=== PATIENT | female | born 1965 | race Two or more races ===

== ENCOUNTER 2016-03-25 12:14 | Emergency (ER) | payer MEDICAID ==
[~2016-03-25] VITALS: Ht 167.6 cm; Wt 86.2 kg
[~2016-03-25 12:14] MED LIST: GLIP-116; GLYB5TAB66; METF-316; ONGLYZA 5 MG; onglyza
[2016-03-25 13:32] VITALS: BP 133/78
== END 2016-03-25 16:16 | disposition home or self-care (01) ==
LOC: ER 12:14
DX: S20.211A Contusion of right front wall of thorax, initial encounter (principal); E11.9 Type 2 diabetes mellitus without complications; I10 Essential (primary) hypertension; W01.0XXA Fall on same level from slipping, tripping and stumbling without subsequent striking against object, initial encounter; Y93.89 Activity, other specified; Y99.8 Other external cause status; Y92.89 Other specified places as the place of occurrence of the external cause
CPT/HCPCS: 71101

== ENCOUNTER 2016-05-17 14:12 | Emergency (ER) | payer MEDICAID ==
[~2016-05-17] VITALS: Ht 167.6 cm; Wt 83.5 kg
[2016-05-17 15:45] LABS: Basophils # (auto) 0.1 uL; Basophils % (auto) 0.9 % (0.0-2.0); Eosinophils # (auto) 0 uL; Eosinophils % (auto) 0.2 % (0.0-7.0); Hematocrit 41.5 % (36.0-46.0); Hemoglobin 13.7 g/dL (12.2-16.2); Lymphocytes # (auto) 1.9 uL; Lymphocytes % (auto) 32.2 % (10.0-50.0); Mean Corpuscular Hemoglobin 28.9 pg (28.0-32.0); Mean Corpuscular Volume 87.7 fL (80.0-100.0); Mean Platelet Volume 8.3 fL (7.4-10.4); Monocytes # (auto) 0.6 uL; Monocytes % (auto) 9.8 % (0.0-12.0); Neutrophils # (auto) 3.4 uL; Neutrophils % (auto) 56.9 % (37.0-80.0); Platelet Count (auto) 317 10^3/uL (140-450); Red Cell Distribution Width 13.3 % (11.6-16.0); White Blood Cell 5.9 10^3/uL (4.4-10.8)
[2016-05-17 15:46] LABS: Albumin 3.5 g/dL (3.4-5.0); Anion Gap 10 (5-15); Aspartate Aminotransferase 16 U/L (15-37); BUN/Creatinine Ratio 18.3; Blood Urea Nitrogen 11 mg/dL (7-18); Calcium 8.6 mg/dL (8.5-10.1); Carbon Dioxide 25 mmol/L (21-32); Chloride 102 mmol/L (98-107); GFR African American 136 mL/min; GFR Non-African American 112 mL/min; Glucose 275 mg/dL (74-106); Potassium 3.9 mmol/L (3.5-5.1); Sodium 137 mmol/L (136-145)
[2016-05-17 15:50] LABS: Alkaline Phosphatase 123 U/L (45-117); Bilirubin, Total 0.3 mg/dL (0.2-1.0); Total Protein 7.7 g/dL (6.4-8.2)
[2016-05-17 20:15] VITALS: BP 125/74
[2016-05-17] MEDS ORDERED: KETOROLAC TROMETH 30 MG/ML 1ML VIAL IV ONE (20:45)
== END 2016-05-17 21:08 | disposition home or self-care (01) ==
LOC: ER 14:12
DX: R07.89 Other chest pain (principal); J40 Bronchitis, not specified as acute or chronic; E11.9 Type 2 diabetes mellitus without complications; I10 Essential (primary) hypertension; M54.2 Cervicalgia; Z79.84 Long term (current) use of oral hypoglycemic drugs; Z79.899 Other long term (current) drug therapy
CPT/HCPCS: 36415; 71010; 80053; 84484; 85025; 93005; 96374; 99285; J1885

== ENCOUNTER 2016-08-12 16:03 | Emergency (ER) | payer MEDICAID ==
[~2016-08-12] VITALS: Ht 167.6 cm; Wt 84.4 kg
[~2016-08-12 16:03] MED LIST changes: -METF-316; +METF-372
[2016-08-12 16:08] VITALS: BP 128/68
[2016-08-12] MEDS ORDERED: KETOROLAC TROMETH 60MG/2ML VIAL IM ONE (16:45)
== END 2016-08-12 18:01 | disposition home or self-care (01) ==
LOC: ER 16:05
DX: M13.0 Polyarthritis, unspecified (principal); I10 Essential (primary) hypertension; E11.9 Type 2 diabetes mellitus without complications; Z79.4 Long term (current) use of insulin
CPT/HCPCS: 73030; 73080; 96372; 99284; J1885; J7040

== ENCOUNTER 2017-03-26 11:17 | Emergency (ER) | payer MEDICAID ==
[~2017-03-26] VITALS: Ht 167.6 cm; Wt 86.2 kg
[2017-03-26 16:33] LABS: Urine Bacteria MANY /hpf (None Seen); Urine Blood 2+ /uL (Negative); Urine Mucus FEW (None Seen); Urine Specific Gravity 1.017 (1.001-1.035); Urine WBC 1416 /hpf (0 - 5); Urine WBC Clumps PRESENT /hpf (None Seen)
[2017-03-26 16:50] VITALS: BP 126/73
[2017-03-26] MEDS ORDERED: cefTRIAXone W LIDOCAINE 1 GM IM IM ONE (17:15)
[2017-03-26] MEDS ORDERED: cefTRIAXone SOD 1,000 MG VL ONE (17:29)
[2017-03-26] MEDS ORDERED: LIDOCAINE 1% HCL (LOCAL ANESTH.) INJ 20ML MDV ONE (17:29)
[2017-03-26] MEDS ORDERED: LIDOCAINE 1% HCL (LOCAL ANESTH.) INJ 20ML MDV IJ ONE (17:45)
[2017-03-26] MEDS ORDERED: cefTRIAXone SOD 1,000 MG VL IM ONE (17:45)
== END 2017-03-26 18:04 | disposition home or self-care (01) ==
LOC: ER 11:17
DX: N30.00 Acute cystitis without hematuria (principal); E11.9 Type 2 diabetes mellitus without complications; I10 Essential (primary) hypertension; Z79.84 Long term (current) use of oral hypoglycemic drugs
CPT/HCPCS: 81001; 82962; 87086; 87088; 87186; 96372; 99284; J0696; J2001

== ENCOUNTER 2017-04-20 18:05 | Emergency (ER) | payer MEDICAID ==
[~2017-04-20] VITALS: Ht 167.6 cm; Wt 87.5 kg
[2017-04-20 19:05] LABS: Basophils # (auto) 0.1 uL; Basophils % (auto) 0.8 % (0.0-2.0); Eosinophils # (auto) 0.2 uL; Eosinophils % (auto) 2.4 % (0.0-7.0); Hematocrit 39.6 % (36.0-46.0); Lymphocytes # (auto) 4.1 uL; Lymphocytes % (auto) 43.3 % (10.0-50.0); Mean Corpuscular Hemoglobin 29.4 pg (28.0-32.0); Mean Corpuscular Hgb Conc. 32.8 g/dL (32.0-36.0); Mean Corpuscular Volume 89.8 fL (80.0-100.0); Monocytes # (auto) 0.6 uL; Monocytes % (auto) 6.5 % (0.0-12.0); Neutrophils # (auto) 4.5 uL; Nucleated Red Blood Cells % 0.2 %; Platelet Count (auto) 302 10^3/uL (140-450); Red Blood Cells 4.41 10^6/uL (4.0-5.20); Red Cell Distribution Width 13.2 % (11.8-14.3); White Blood Cell 9.5 10^3/uL (4.4-10.8)
[2017-04-20 19:26] LABS: Alanine Aminotransferase 22 U/L (13-56); Albumin 3.3 g/dL (3.4-5.0); Alkaline Phosphatase 109 U/L (45-117); Anion Gap 9 (5-15); Aspartate Aminotransferase 17 U/L (15-37); BUN/Creatinine Ratio 31.4; Bilirubin, Total 0.2 mg/dL (0.2-1.0); Blood Urea Nitrogen 22 mg/dL (7-18); Calcium 8.6 mg/dL (8.5-10.1); Carbon Dioxide 25 mmol/L (21-32); Chloride 106 mmol/L (98-107); GFR African American 113 mL/min; GFR Non-African American 94 mL/min; Glucose 199 mg/dL (74-106); Magnesium 2.1 mg/dL (1.6-2.6); Potassium 3.6 mmol/L (3.5-5.1); Sodium 140 mmol/L (136-145); Total Protein 7.5 g/dL (6.4-8.2)
[2017-04-20 21:30] VITALS: BP 138/72
== END 2017-04-20 22:51 | disposition home or self-care (01) ==
LOC: ER 18:05
DX: R07.9 Chest pain, unspecified (principal); R06.02 Shortness of breath; E11.9 Type 2 diabetes mellitus without complications; K21.9 Gastro-esophageal reflux disease without esophagitis; I10 Essential (primary) hypertension; Z79.899 Other long term (current) drug therapy; E66.01 Morbid (severe) obesity due to excess calories; Z68.31 Body mass index [BMI] 31.0-31.9, adult; Z79.84 Long term (current) use of oral hypoglycemic drugs
CPT/HCPCS: 36415; 71046; 80053; 83735; 84484; 85025; 93005

== ENCOUNTER 2017-10-25 20:14 | Emergency (ER) | payer MEDICARE, MEDICAID ==
[~2017-10-25] VITALS: Ht 167.6 cm; Wt 85.7 kg
[2017-10-25 21:25] LABS: Basophils # (auto) 0.1 uL; Basophils % (auto) 0.8 % (0.0-2.0); Eosinophils # (auto) 0.1 uL; Eosinophils % (auto) 1.6 % (0.0-7.0); Hematocrit 38.5 % (36.0-46.0); Hemoglobin 12.9 g/dL (12.2-16.2); Lymphocytes # (auto) 2.7 uL; Lymphocytes % (auto) 34.6 % (10.0-50.0); Mean Corpuscular Hemoglobin 29.8 pg (28.0-32.0); Mean Corpuscular Hgb Conc. 33.4 g/dL (32.0-36.0); Mean Corpuscular Volume 89.2 fL (80.0-100.0); Monocytes # (auto) 0.5 uL; Neutrophils # (auto) 4.5 uL; Nucleated Red Blood Cells % 0.1 %; Platelet Count (auto) 304 10^3/uL (140-450); Red Blood Cells 4.32 10^6/uL (4.0-5.20); White Blood Cell 7.9 10^3/uL (4.4-10.8)
[2017-10-25 21:41] LABS: Urine Bacteria FEW /hpf (None Seen); Urine Blood Negative /uL (Negative); Urine Mucus FEW (None Seen); Urine Specific Gravity 1.011 (1.001-1.035); Urine WBC 21 /hpf (0 - 5)
[2017-10-25 21:51] LABS: Alanine Aminotransferase 23 U/L (13-56); Albumin 3.4 g/dL (3.4-5.0); Alkaline Phosphatase 120 U/L (45-117); Anion Gap 6 (5-15); Aspartate Aminotransferase 16 U/L (15-37); BUN/Creatinine Ratio 19.4; Bilirubin, Total 0.3 mg/dL (0.2-1.0); Blood Urea Nitrogen 12 mg/dL (7-18); Calcium 8.5 mg/dL (8.5-10.1); Carbon Dioxide 29 mmol/L (21-32); Chloride 104 mmol/L (98-107); GFR African American 130 mL/min; GFR Non-African American 107 mL/min; Glucose 201 mg/dL (74-106); Lipase 83 U/L (73-393); Magnesium 2.2 mg/dL (1.6-2.6); Potassium 3.8 mmol/L (3.5-5.1); Sodium 139 mmol/L (136-145); Total Protein 7.6 g/dL (6.4-8.2)
[2017-10-26] MEDS ORDERED: SODIUM CHLORIDE 0.9% 1,000 ML IV ONE (02:00)
[2017-10-26] MEDS ORDERED: LEVOFLOXACIN 750MG 150 ML IV ONE (02:00)
[2017-10-26 03:45] VITALS: BP 134/75
== END 2017-10-26 04:31 | disposition home or self-care (01) ==
LOC: ER 20:14
DX: K29.00 Acute gastritis without bleeding (principal); E11.9 Type 2 diabetes mellitus without complications; I10 Essential (primary) hypertension; Z79.84 Long term (current) use of oral hypoglycemic drugs
CPT/HCPCS: 36415; 72131; 74176; 80053; 81001; 83690; 83735; 84484; 85025; 96365; 99285; J1956; J7030

== ENCOUNTER 2024-12-15 23:04 | Inpatient (IN) | payer MEDICAID, MEDICARE, OTHER ==
[~2024-12-15] VITALS: Ht 167.6 cm; Wt 76.7 kg
[~2024-12-15 23:04] MED LIST changes: -GLIP-116; +GLIP10TA9
[2024-12-16] VITALS (10 sets, daily range): BP systolic 151–162; BP diastolic 64–79; PULSE 104–113; RESP 15–26; TEMP 98.3–101.7; O2SAT 96–99
--- NOTE | 2024-12-16 00:05 | DVH ---
Exam: CT CT AB PEL WO CON-NO ORAL OR IV History: FLANK PAIN, KID STONE Comparison Study: None Technique: Multidetector spiral CT of the abdomen was performed from lung bases to pubic symphysis. I maging was performed without IV contrast. Axial, coronal and sagittal multiplanar reformats were obta ined from the axial data set by the technologist. Radiation Dose : 1. Abdomen/Pelvis: CTDIvol 12.69 mGy, DLP 740.05 mGy*cm. Findings: Evaluation of solid organs is limited due to lack of intravenous contrast use. Lung Bases: No acute or significant lung base finding. Normal heart size. No pleural or pericardial effusion. Liver: The liver is normal in size. No focal lesions. Gallbladder and Biliary Tree: Unremarkable Spleen: Unremarkable Pancreas: The pancreas is grossly normal in appearance. Adrenal Glands: Unremarkable Kidneys: Kidneys are grossly normal without calculi or hydronephrosis. Bladder: Large volume of gas within the wall of the urinary bladder. Gas is also seen in the lumen. Gas is seen tracking throughout the retroperitoneum including both psoas muscles as well as the epidu ral space of the spinal canal and posterior paraspinal soft tissues. Bowel: The stomach is grossly normal in appearance. Small bowel and colon are normal in caliber and d istribution. The appendix is not visualized; however, no secondary findings of acute appendicitis diana ntified. Ascites: Absent Lymphadenopathy: No mesenteric, retroperitoneal or periportal lymphadenopathy. Abdominal Wall and Mesentery: Unremarkable. Vasculature: The visualized abdominal aorta is normal in size and caliber. Evaluation of abdominal a nd pelvic vessels is limited due to lack of intravenous contrast. Pelvic Organs: Unremarkable Musculoskeletal: No aggressive focal bony lesions, acute fractures or dislocation. Gas is seen within the L4 and L5 vertebral bodies. IMPRESSION: Gas within the wall of the urinary bladder suggesting emphysematous cystitis. A large volume of gas is also seen tracking throughout the retroperitoneum including the psoas muscle s, vertebral bodies, and epidural space of the spinal canal. Cause unclear but presumably related to gas tracking along the venous return of the urinary bladder. Please correlate with any concern for a widespread infection. Radiation optimization: All CT scans at this facility use at least one of these dose optimization chang hniques: automated exposure control mA and/or kV adjustment per patient size (includes targeted exam s where dose is matched to clinical indication) or iterative reconstruction.
[2024-12-16 00:28] LABS: Nucleated Red Blood Cells % 0.0 %
[2024-12-16 00:30] LABS: Hematocrit 21.3 % (36.0-46.0); Mean Corpuscular Hemoglobin 27.6 pg (28.0-32.0); Mean Corpuscular Volume 87.7 fL (80.0-100.0)
[2024-12-16 00:32] LABS: Hemoglobin 6.7 g/dL (12.2-16.2)
--- NOTE | 2024-12-16 00:44 | DVH ---
CHEST RADIOGRAPH Indication: sepsis Technique: Single frontal view of the chest was obtained COMPARISON: None FINDINGS: Lungs and pleural spaces are clear. Cardiac silhouette and maria c are within normal limits. Bones and s oft tissues demonstrate no significant abnormality. IMPRESSION: No acute disease.
[2024-12-16 00:46] LABS: Alanine Aminotransferase 16 U/L (7-40); Anion Gap 13 (5-15); BUN/Creatinine Ratio 15.5 (10.0-20.0); Bilirubin, Total 0.4 mg/dL (0.2-1.0); Blood Urea Nitrogen 18 mg/dL (9-23); Calcium 8.9 mg/dL (8.7-10.4); Potassium 4.1 mmol/L (3.5-5.1); Total Protein 7.6 g/dL (5.7-8.2)
--- NOTE | 2024-12-16 00:46 | ED.PDOC ---
General HPI Comments HPI: Poor Historian. 59-year-old female presents to emergency depart for evaluation of right flank pain constant for the last eight days. Patient has been in makes him for at least a month to a proximally seven days ago she went to the hospital and was admitted for seven days with a placed a Bhandari catheter according to her. She does not know what her diagnosis was accept some kidney stones. She required blood transfusion there for anemia. although I am using a waiter/waitress buffet She is an extremely poor historian. She left the hospital in [place] today and came to our hospital. Past Medical History: DIABETES Past Surgical History: REVIEW OF SYSTEMS: CONSTITUTIONAL: Denies acute: fever, diaphoresis, chills, HEAD: Denies acute: headache, photophobia Eyes: Denies acute: Double vision, vision loss, eye pain, eye discharge. EARS: Denies acute: tinnitus, hearing loss, ear discharge, ear pain, THROAT: Denies acute: sore throat, swelling, difficulty swallowing , pain with swallowing, change in voice. NECK: Denies acute: neck pain, neck swelling, stiff neck. HEART: Denies acute : chest pain, palpitations, LUNGS: Denies acute: SOB, wheezing, cough, hemoptysis ABDOMEN: Denies acute: abdominal pain, Nausea, Vomiting, diarrhea, melena , hematemesis, hematochezia SKIN: Denies acute: rash, redness, lesions, itchiness. EXTREMITIES: Denies acute: calf pain, numbness, tingling, weakness, denies pain in extremity. Denies acute: Low back pain. Neuro: Denies acute: focal neurological deficit, motor or sensory focal neurological deficit, tremors, seizure like activity, confusion, dizziness, change in mental status, loss of bowel or bladder function, cauda equina like symptoms. : Denies acute: dysuria, hematuria, increase in urinary frequency. PSYCH: Denies acute: hallucination, suicidal ideation, homicidal ideation. FEMALE: Denies acute: abnormal vaginal bleeding, foul odor, unusual discharge. PHYSICAL EXAM: General: -----MILD---acute distress, awake and alert. Head: normocephalic, atraumatic. Neck: supple, trachea is midline, no swelling. Throat: Normal phonation. Eyes:, no erythema, no purulent discharge, no proptosis, no icterus. Heart: regular tachycardic, no significant murmur appreciated. Lungs: no apparent respiratory distress, Able to speak in full sentences. No wheezing, no rhonchi, no crackles. No stridors Clear to auscultation bilaterally. Abdomen: non tender to palpation, non distended, soft, no guarding, no rebound, + bowel sounds. Neuro: Awake, Alert, oriented to name, self, situation, follows commands GCS=15. Speech is normal. Skin: no petechia, no purpura, no cyanosis, SLIGHTLY-pale, SLIGHTLY jaundice. Lower extremities: --no - Pitting edema no deformity, no focal swelling, no calf TTP. Makes eye contact. moves all four extremities. Face: no apparent facial droop. Right CVA tenderness to percussion ED COURSE: DISCLAIMER: This medical document was created using an electronic medical record system with voice recognition software and computerized dictation system. Although this document has been carefully reviewed, there might still be some phonetic and typographical errors. Occasional wrong-word or "sound-alike" substitutions may have occurred due to the inherent limitations of voice recognition software. These areas are purely typographical due to imperfections of the software programs and do not reflect any compromise in the patient's medical care. Please read the chart carefully and recognize, using context, where these substitutions have occurred. Chief Complaint: Flank Pain Time Seen by MD: 23:20 Primary Care Provider: UNK Reviewed notes: Allergies Allergies: Coded Allergies: NO KNOWN ALLERGIES (Unverified , 08/21/09) Home Meds Active Scripts Hydrocodone-Acetaminophen (Hydrocodone Bitartrate/AC 5-325 mg) 1 Tab Tab, 1 TAB PO Q6HP PRN, #30 TAB Prov:CRAIG HENDRICKS MD 12/24/24 Reported Medications [Metformin [id number] Mg] (Metformin Hcl) 1000 MG TAB No Conflict Check, MG 07/11/12 [Onglyza 5 Mg Tablet] No Conflict Check 07/11/12 [[id number] Mg] (Glipizide) 10 MG TAB No Conflict Check, MG 07/11/12 [onglyza] 5 MG No Conflict Check, 5 MG DAILY 08/21/09 Metformin Hydrochloride (Metformin Hcl) 1,000 Mg Tab, 1000 MG BID 08/21/09 Glyburide (Diabeta) 5 Mg Tab, 5 MG 08/21/09 Information Source: Patient Mode of Arrival: Ambulatory Past Medical History PAST MEDICAL HISTORY: DM, HTN Surgical History: INTEGRATION SOFTWARE ENGINEER History: No Pertinent INTEGRATION SOFTWARE ENGINEER History Family History Family History: Unknown Social History Smoker: Non-Smoker Alcohol: Denies ETOH Use Drugs: Denies Drug Use Lives In: Home Was a procedure done? Was a procedure done?: No Differential Diagnosis Kidney stone (Female): Other (Flank Pain;DDX include Nephrolethiasis, obstructive uropathy, kidney cancer, renal infarct, intraabdominal neoplasm, lower lobe pneumonia, retroperitoneal hemorrhage, pancreatitis, aneurysm, di ssection, musculoskeletal, rib contusion/trauma, hematoma, PYLONEPHRITIS, muscle strain, spinal disease. ) X-Ray, Labs, Meds, VS Vital Signs Date Time Temp Pulse Resp B/P (MAP) Pulse Ox O2 Delivery O2 Flow Rate FiO2 12/16/24 01:20 110 21 99 Room Air* 0 21 12/15/24 23:10 98.3 123 20 144/50 97 98.3 Lab Test 12/16/24 01:50 12/16/24 01:40 12/16/24 00:05 Range/Units Urine Color Light-brown Yellow Urine Clarity Turbid H Clear Urine pH 5.5 5.0-9.0 Urine Specific [place] 1.018 1.001-1.035 Urine Protein 1+ H Negative Urine Ketones 1+ H Negative Urine Blood 3+ H Negative /uL Urine Nitrite Negative Negative Urine Bilirubin Negative Negative Urine Urobilinogen Normal Negative mg/dL Urine Leukocyte Esterase 2+ Negative /uL Urine RBC 1123 0 - 4 /hpf Urine WBC Clumps Present None Seen /hpf Urine Microscopic WBC 334 H 0-5 /HPF Urine Squamous Epithelial Cells Few <5 /hpf Urine Bacteria Many H None Seen /hpf Urine Glucose 4+ H Normal mg/dL POC Glucose 445 *H 70-106 mg/dl White Blood Count 17.2 H 4.4-10.8 10^3/uL Red Blood Count 2.43 L 4.0-5.20 10^6/uL Hemoglobin 6.7 *L 12.2-16.2 g/dL Hematocrit 21.3 L 36.0-46.0 % Mean Corpuscular Volume 87.7 80.0-100.0 fL Mean Corpuscular Hemoglobin 27.6 L 28.0-32.0 pg Mean Corpuscular Hemoglobin Concent 31.5 L 32.0-36.0 g/dL Red Cell Distribution Width 16.0 H 11.8-14.3 % Platelet Count 313 140-450 10^3/uL Mean Platelet Volume 6.6 L 6.9-10.8 fL Neutrophils (%) (Auto) 84.2 H 37.0-80.0 % Lymphocytes (%) (Auto) 8.7 L 10.0-50.0 % Monocytes (%) (Auto) 6.4 0.0-12.0 % Eosinophils (%) (Auto) 0.5 0.0-7.0 % Basophils (%) (Auto) 0.2 0.0-2.0 % Neutrophils # (Auto) 14.5 H 1.6-8.6 10 ^3/uL Lymphocytes # (Auto) 1.5 0.4-5.4 10 ^3/uL Monocytes # (Auto) 1.1 0-1.3 10 ^3/uL Eosinophils # (Auto) 0.1 0-0.8 10 ^3/uL Basophils # (Auto) 0 0-0.2 10 ^3/uL Nucleated Red Blood Cells 0.0 % Prothrombin Time 13.7 H 9.3-11.8 sec Prothrombin Time INR 1.33 H 0.9-1.15 Activated Partial Thromboplast Time 29.6 24.5-34.5 SEC Sodium Level 129 L 136-145 mmol/L Potassium Level 4.1 3.5-5.1 mmol/L Chloride Level 96 L 98-107 mmol/L Carbon Dioxide Level 20 20-31 mmol/L Anion Gap 13 5-15 Blood Urea Nitrogen 18 9-23 mg/dL Creatinine 1.16 H 0.550-1.02 mg/dL Glomerular Filtration Rate Calc 54 >90 mL/min BUN/Creatinine Ratio 15.5 10.0-20.0 Serum Glucose 508 *H 74-106 mg/dL Serum Osmolality 306 H 278-298 mOsm/kg Lactic Acid Level 0.9 0.4-2.0 mmol/L Calcium Level 8.9 8.7-10.4 mg/dL Iron Level 33 L 50-170 ug/dL Total Iron Binding Capacity 164 L 250-425 ug/dL Percent Iron Saturation 20.1 15-50 % Total Bilirubin 0.4 0.2-1.0 mg/dL Aspartate Amino Transferase (AST) 16 13-40 U/L Alanine Aminotransferase (ALT) 16 7-40 U/L Alkaline Phosphatase 126 H 46-116 U/L Total Protein 7.6 5.7-8.2 g/dL Albumin 3.1 L 3.2-4.8 g/dL Beta-Hydroxybutyric Acid 2.905 H < 0.4 mmol/L Microbiology Date/Time Source Procedure Growth Status 12/16/24 01:50 Voided Urine Urine Culture - Final Complete 12/16/24 00:52 Blood Blood Culture - Final Escherichia coli Complete 12/16/24 00:42 Blood Blood Culture - Final Escherichia coli Complete [place] [address] Ph: [phone] DIAGNOSTIC IMAGING Diagnostic Imaging Report : [id number] Signed PATIENT: MELO RODRÍGUEZ ACCT: [id number] UNIT: [id number] : 1965 LOC: ER ROOM / BED: / AGE / SEX: 59 / F ADM STATUS: REG ER SERVICE 2320 ORDERING PHYSICIAN: RM MORENO DO PROCEDURE(s): ABPL - CT AB PEL WO CON-NO ORAL OR IV REASON: FLANK PAIN, KID STONE ORDER NUMBER(s): [id number], ACCESSION NUMBER(s): [id number] Exam: CT CT AB PEL WO CON-NO ORAL OR IV History: FLANK PAIN, KID STONE Comparison Study: None Technique: Multidetector spiral CT of the abdomen was performed from lung bases to pubic symphysis. Imaging was performed without IV contrast. Axial, coronal and sagittal multiplanar reformats were obtained from the axial data set by the technologist. Radiation Dose : 1. Abdomen/Pelvis: CTDIvol 12.69 mGy, DLP 740.05 mGy*cm. Findings: Evaluation of solid organs is limited due to lack of intravenous contrast use. Lung Bases: No acute or significant lung base finding. Normal heart size. No pleural or pericardial effusion. Liver: The liver is normal in size. No focal lesions. Gallbladder and Biliary Tree: Unremarkable Spleen: Unremarkable Pancreas: The pancreas is grossly normal in appearance. Adrenal Glands: Unremarkable Kidneys: Kidneys are grossly normal without calculi or hydronephrosis. Bladder: Large volume of gas within the wall of the urinary bladder. Gas is also seen in the lumen. Gas is seen tracking throughout the retroperitoneum including both psoas muscles as well as the epidural space of the spinal canal and posterior paraspinal soft tissues. Bowel: The stomach is grossly normal in appearance. Small bowel and colon are normal in caliber and distribution. The appendix is not visualized; however, no secondary findings of acute appendicitis identified. Ascites: Absent Lymphadenopathy: No mesenteric, retroperitoneal or periportal lymphadenopathy. Abdominal Wall and Mesentery: Unremarkable. Vasculature: The visualized abdominal aorta is normal in size and caliber. Evaluation of abdominal and pelvic vessels is limited due to lack of intravenous contrast. Pelvic Organs: Unremarkable Musculoskeletal: No aggressive focal bony lesions, acute fractures or dislocation. Gas is seen within the L4 and L5 vertebral bodies. IMPRESSION: Gas within the wall of the urinary bladder suggesting emphysematous cystitis. A large volume of gas is also seen tracking throughout the retroperitoneum including the psoas muscles, vertebral bodies, and epidural space of the spinal canal. Cause unclear but presumably related to gas tracking along the venous return of the urinary bladder. Please correlate with any concern for a widespread infection. Radiation optimization: All CT scans at this facility use at least one of these dose optimization techniques: automated exposure control mA and/or kV adjustment per patient size (includes targeted exams where dose is matched to clinical indication) or iterative reconstruction. ATED BY: EVER JUAREZ MD DICTATED DATE/TIME: 12/16/24 0003 SIGNED BY: EVER JUAREZ MD SIGNED DATE/TIME: 12/16/24 0003 CC: Time of 1ST Reevaluation: 00:35 Reevaluation 1ST: Unchanged Patient Education/Counseling: Diagnosis, Treatment Family Education/Counseling: Other Comments MDM: patient presented with the above HPI.----flank pain--workup was initiated. patient was found with the above mentioned diagnosis. the following medications were ordered: please refer to order lists of meds and tests obtained by myself Dr. Moreno. Patient ED course and VS have been stabilized. Patient has been reassessed in the ED and remained in a stable condition. Pertinent incidental findings were discussed with the patient and/or family. Patient/family voices understanding and is agreeable with plan. Patient has been observed in the ED adequate length of time to insure improvement/stability. Escalation of care considered: Consideration of escalation to observation or admission Sepsis protocol was initiated. Patient was ADMITTED to the medicine team for further evaluation and treatment of their presentation. All the reports of any imaging studies that were ordered by myself were reviewed by myself. SEPSIS Sepsis Screen Date sepsis recognized/suspect: Dec 15, 2024 Time Sepsis recognized/suspect: 2314 Recent Procedure: No On Antibiotic Therapy: No Respiratory Rate >20: No Heart Rate >90: Yes Temp<36 C (96.8 F) or >38.3 C: No SBP <90 or MAP <65 mmHG: No New Acute Mental Status Change: No Is the patient on CPAP, BIPAP,: No Physician Orders System Programmer (12/15/24 ) Ct Ab Pel Wo Con-No Oral Or Iv (12/15/24 23:20) Chest Portable (12/16/24 00:22) Accucheck (12/16/24 00:22) Notify Md If Map <65 Or Bp<90 (12/16/24 00:22) If Map<65 Start Vasopressor (12/16/24 00:22) Sepsis Reassesment After Fluid (12/16/24 01:22) Kidney (12/16/24 02:39) Ct Ab Pel With Iv Con Only (12/16/24 02:39) Vital Signs Date Time Temp Pulse Resp B/P (MAP) Pulse Ox O2 Delivery O2 Flow Rate FiO2 12/16/24 01:20 110 21 99 Room Air* 0 21 12/15/24 23:10 98.3 123 20 144/50 97 98.3 Laboratory Tests Test 12/16/24 00:05 Lactic Acid Level 0.9 mmol/L (0.4-2.0) White Blood Count 17.2 10^3/uL (4.4-10.8) H Departure 1 Departure Time of Disposition: 00:28 Impression: Primary Impression: Sepsis Additional Impressions: Abnormal finding on CT scan Severe anemia Leukocytosis Hyperglycemia due to diabetes mellitus Disposition: ADMITTED INPATIENT Admit to: Tele Condition: Guarded e-Prescriptions Hydrocodone-Acetaminophen (Hydrocodone Bitartrate/AC 5-325 mg) 1 Tab Tab 1 TAB PO Q6HP PRN, #30 TAB Prov: CRAIG HENDRICKS MD 12/24/24 Discharged With: Self Critical Care Note Critical Care Time?: Yes (45 min-critical care time only) RM MORENO DO Dec 16, 2024 00:46
[2024-12-16 00:47] LABS: INR 1.33 (0.9-1.15); Partial Thromboplastin Time 29.6 SEC (24.5-34.5); Prothrombin Time 13.7 sec (9.3-11.8)
[2024-12-16 00:55] LABS: Albumin 3.1 g/dL (3.2-4.8); Alkaline Phosphatase 126 U/L (46-116); Carbon Dioxide 20 mmol/L (20-31); Chloride 96 mmol/L (98-107); Sodium 129 mmol/L (136-145)
[2024-12-16 00:56] LABS: Glucose 508 mg/dL (74-106)
--- NOTE | 2024-12-16 01:41 | DVHHPRES ---
History of Present Illness Resident Creating Document: NIKI KIRKPATRICK History of Present Illness The patient is a Mexican-speaking 59-year-old female presenting to the Emergency Department for evaluation of right flank pain that has been constant for the past 8 days. She is a poor historian, and a most history taken by her niece during the interview. She reports having been in [place] for at least one month. Approximately 7 days ago, she was admitted to a hospital in [place] for evaluation and treatment. During that hospitalization, a Bhandari catheter was placed, and she received a blood transfusion for anemia. The patient states she was diagnosed with kidney stones and pyelonephritis She was discharged from the hospital in [place] earlier today and came directly to our facility for further evaluation due to ongoing symptoms. On evaluation in the ED, patient is afebrile, vitals are stable. On current ED evaluation, she is afebrile with stable vital signs but blood pressure was 144/50 mmHg and significant normocytic anemia (Hgb 6.7) and marked hyperglycemia (glucose 508 mg/dL). Abdominal CT shows gas within the wall of the urinary bladder suggesting emphysematous cystitis. A large volume of gas is also seen tracking throughout the retroperitoneum including the psoas muscles, vertebral bodies, and epidural space of the spinal canal. The patient was started on IV antibiotics, Insulin and blood transfusion. Patient is admitted for further evaluation and lisandra jha. Cardiovascular: HTN Endocrine: Diabetes Past Surgical History: None Family History: None Smoke: No ALCOHOL: none Drugs: None Review of Systems Review of Systems Eyes: No Pain, No Vision change, No Conjunctivae inflammation, No Eyelid inflammation, No Other, No Redness ENT: No Ear pain, No Ear discharge, No Nose pain, No Nose discharge, No Nose congestion, No Mouth pain, No Mouth swelling, No Throat pain, No Throat swelling, No Other Cardiovascular: No Chest Pain, No Palpitations, No Orthopnea, No Paroxysmal No Dyspnea, No Edema, No Lt Headedness, No Other Respiratory: No Cough, No Dry, No Shortness of breath, No SOB with exertion, No Wheezing, No Hemoptysis, No Pleuritic Pain, No Sputum, No Other Gastrointestinal: No Nausea, No Vomiting, No Abdominal Pain, No Diarrhea, No Constipation, No Melena, No Hematochezia, No Other Genitourinary: No Dysuria, No Frequency, No Incontinence, No Hematuria, No Retention, No Other Musculoskeletal: No other, No neck pain, No shoulder pain, No arm pain, back pain, No hand pain, No leg pain, No foot pain Skin: No Rash, No Lesions, No Jaundice, No Bruising, No Other Allergies: Coded Allergies: NO KNOWN ALLERGIES (Unverified , 08/21/09) Exam Vital Signs Vital Signs Date Time Temp Pulse Resp B/P (MAP) Pulse Ox O2 Delivery O2 Flow Rate FiO2 12/15/24 23:10 98.3 123 20 144/50 97 98.3 Exam General Appearance: Mild acute distress. Cooperative. Well developed. Well nourished. NAD Head Exam: Normal inspection Neck Exam: Normal inspection. Non-tender. Normal alignment Pulmonary/Respiratory: Chest non-tender. Clear bilateral breath sounds, no crackles, no wheezing. Cardiovascular/Chest: Regular rate and rhythm. No murmurs. No JVD. Peripheral Pulses: 2+ Radial (R). 2+ Radial (L). 2+ Pedal (R). 2+ Pedal (L) Abdominal/Flank: Normal bowel sounds. Soft. normal abdomen, no visible veins, Nontender. No hepatospenomegaly. No masses. Right CVA tenderness to percussion Ankle Exam: Negative ankle edema Lower extremities: Negative lower extremity edema Neuro/Mental Status: A&O x4. Coherent. Thoughts/Psych: Normal thought pattern. Appropriate mood and affect. Good judgement and insight Skin Exam: Normal inspection. Normal color. Warm. Dry Labs/Xrays Labs Test 12/16/24 00:05 Range/Units White Blood Count 17.2 H 4.4-10.8 10^3/uL Red Blood Count 2.43 L 4.0-5.20 10^6/uL Hemoglobin 6.7 *L 12.2-16.2 g/dL Hematocrit 21.3 L 36.0-46.0 % Mean Corpuscular Volume 87.7 80.0-100.0 fL Mean Corpuscular Hemoglobin 27.6 L 28.0-32.0 pg Mean Corpuscular Hemoglobin Concent 31.5 L 32.0-36.0 g/dL Red Cell Distribution Width 16.0 H 11.8-14.3 % Platelet Count 313 140-450 10^3/uL Mean Platelet Volume 6.6 L 6.9-10.8 fL Neutrophils (%) (Auto) 84.2 H 37.0-80.0 % Lymphocytes (%) (Auto) 8.7 L 10.0-50.0 % Monocytes (%) (Auto) 6.4 0.0-12.0 % Eosinophils (%) (Auto) 0.5 0.0-7.0 % Basophils (%) (Auto) 0.2 0.0-2.0 % Neutrophils # (Auto) 14.5 H 1.6-8.6 10 ^3/uL Lymphocytes # (Auto) 1.5 0.4-5.4 10 ^3/uL Monocytes # (Auto) 1.1 0-1.3 10 ^3/uL Eosinophils # (Auto) 0.1 0-0.8 10 ^3/uL Basophils # (Auto) 0 0-0.2 10 ^3/uL Nucleated Red Blood Cells 0.0 % Prothrombin Time 13.7 H 9.3-11.8 sec Prothrombin Time INR 1.33 H 0.9-1.15 Activated Partial Thromboplast Time 29.6 24.5-34.5 SEC Sodium Level 129 L 136-145 mmol/L Potassium Level 4.1 3.5-5.1 mmol/L Chloride Level 96 L 98-107 mmol/L Carbon Dioxide Level 20 20-31 mmol/L Anion Gap 13 5-15 Blood Urea Nitrogen 18 9-23 mg/dL Creatinine 1.16 H 0.550-1.02 mg/dL Glomerular Filtration Rate Calc 54 >90 mL/min BUN/Creatinine Ratio 15.5 10.0-20.0 Serum Glucose 508 *H 74-106 mg/dL Lactic Acid Level 0.9 0.4-2.0 mmol/L Calcium Level 8.9 8.7-10.4 mg/dL Total Bilirubin 0.4 0.2-1.0 mg/dL Aspartate Amino Transferase (AST) 16 13-40 U/L Alanine Aminotransferase (ALT) 16 7-40 U/L Alkaline Phosphatase 126 H 46-116 U/L Total Protein 7.6 5.7-8.2 g/dL Albumin 3.1 L 3.2-4.8 g/dL SEPSIS Sepsis Screen Date sepsis recognized/suspect: Dec 15, 2024 Time Sepsis recognized/suspect: 2314 Recent Procedure: No On Antibiotic Therapy: No Respiratory Rate >20: No Heart Rate >90: Yes Temp<36 C (96.8 F) or >38.3 C: No SBP <90 or MAP <65 mmHG: No New Acute Mental Status Change: No Is the patient on CPAP, BIPAP,: No Physician Orders Marketing Instructor (12/15/24 ) Urinalysis (12/15/24 23:20) Ct Ab Pel Wo Con-No Oral Or Iv (12/15/24 23:20) Chest Portable (12/16/24 00:22) Accucheck (12/16/24 00:22) Blood Culture (12/16/24 00:22) Notify Md If Map <65 Or Bp<90 (12/16/24 00:22) If Map<65 Start Vasopressor (12/16/24 00:22) Sepsis Reassesment After Fluid (12/16/24 01:22) Vancomycin 1gm/250ml Kit (12/16/24 00:45) Type And Screen (12/16/24 00:33) Vital Signs Date Time Temp Pulse Resp B/P (MAP) Pulse Ox O2 Delivery O2 Flow Rate FiO2 12/15/24 23:10 98.3 123 20 144/50 97 98.3 Laboratory Tests Test 12/16/24 00:05 Lactic Acid Level 0.9 mmol/L (0.4-2.0) White Blood Count 17.2 10^3/uL (4.4-10.8) H Assessment/Plan Assessment/Plan Sepsis likely due to UTI Emphysematous cystitis kidney ultrasound pending CT abdomen pelvis pending blood culture and urine culture pending Abdomen/Pelvis CT: Gas within the wall of the urinary bladder suggesting emphysematous cystitis. A large volume of gas is also seen tracking throughout t he retroperitoneum including the psoas muscles, vertebral bodies, and epidural space of the spinal canal. Cause unclear but presumably related to gas tracking along the venous return of the urinary bladder. cefepime 1 Gm IV q.12 metronidazole IV Q 8 Zosyn IV Q 8 Severe normocytic, normochromic anemia Hgb: 6.7 Blood Transfusion Uncontrolled type 2 diabetes, hyperglycemia Hyperosmolar hyperglycemic state (HHS) Accu-Check serum glucose 508 Insulin lantus 20 unit SC once insulin are 5 units IV once moderate insulin Diet: Clear liquid PUD prophylaxis: protonix 40mg Goals of care: Full code, discussed for >16 minutes on 12/16/24 Plan discussed with patient Plan discussed with Dr. Moreno Plan discussed with: Patient, Other (Knees) Date of Service: Dec 16, 2024 Billing Provider: ADILSON MORENO MD [facility] RESIDENT Dec 16, 2024 01:41
[2024-12-16] MEDS: LACTATED RINGER'S 1,800 ML IV ONE (02:00)
[2024-12-16 02:21] LABS: Urine Protein, UAD 1+ (Negative); Urine WBC Clumps PRESENT /hpf (None Seen)
[2024-12-16] MEDS: InsuLIN REG 1unit/0.01ml Soln (100units/ml) IV ONE (02:28)
[2024-12-16] MEDS: PIPERACILLIN-TAZOB 3.375GM 100 ML IV ONE (02:35)
[2024-12-16] MEDS ORDERED: DEXTROSE (50%) 50ML SYRG IV PRN (02:45)
[2024-12-16 03:28] LABS: Iron 33.0 ug/dL (50-170); Total Iron Binding Capacity 164.0 ug/dL (250-425)
[2024-12-16] MEDS: VANCOMYCIN 1GM/250ML KIT 250 ML IV ONE (03:30)
[2024-12-16] MEDS: PANTOPRAZOLE 40 MG/10 ML VIAL INJ IV ONE (03:45)
[2024-12-16] MEDS ORDERED: VANCOMYCIN PER PHARMACY 0 MG IV SCH (04:15)
[2024-12-16] MEDS: ACCU-CHEK COMFORT CURVE STRIP VI SCH (04:23)
[2024-12-16] MEDS: InsuLIN REG 1unit/0.01ml Soln (100units/ml) SC SCH (04:37)
[2024-12-16] MEDS: LACTATED RINGER'S 1,000 ML IV ONE (05:50)
[2024-12-16] MEDS ORDERED: PIPERACILLIN-TAZOB 3.375GM 100 ML IV SCH (06:00)
[2024-12-16] MEDS: SODIUM CHLOR 0.9% PF (SALINE LOCK) 10ML VIAL/SYR IV SCH (06:13)
--- NOTE | 2024-12-16 07:14 | DVH ---
INDICATION: right flank pain TECHNIQUE: Multiple real-time sonographic images of the kidneys and bladder were obtained. COMPARISON: None FINDINGS: RIGHT kidney measures 12.9 cm in length. Trace hydronephrosis. LEFT kidney measures 15.0 cm in length. Trace hydronephrosis. No large intraluminal masses are seen in the bladder. Distended bladder measuring 873 cc. IMPRESSION: Distended urinary bladder with trace bilateral hydronephrosis.
[2024-12-16] MEDS: INSULIN LANTUS (GLARGINE) 1 /0.01ml (100units/ml) SC ONE (07:23)
[2024-12-16] MEDS: FERROUS SULFATE 325mg EC TAB PO SCH (08:19)
[2024-12-16] MEDS: CEFEPIME 1GM/50ML 50 ML IV SCH (08:19)
--- NOTE | 2024-12-16 08:20 | DVH ---
Exam: CT CT AB PEL WITH IV CON ONLY History: Right flank pain Comparison Study: None Contrast: Type of contrast: Omnipaque 300 Contrast injected: 100 mL Contrast wasted: 0 TECHNIQUE: CT of the abdomen pelvis was performed with intravenous contrast. Coronal sagittal reforma tted images are submitted. Radiation Dose Information: CT Dose: CTDI volume is 13.43 mGy. Dose-length product is 3.92 mGy*cm FINDINGS: Lung Bases: No acute or significant lung base finding. Normal heart size. No pleural or pericardial effusion. Liver: The liver is normal in size. No focal lesions. Normal hepatic vascular enhancement. Gallbladder and Biliary Tree: The gallbladder is unremarkable. Spleen: The spleen is normal in size. No splenic mass. Pancreas: The pancreas is normal in appearance without focal lesions or abnormal enhancement. Adrenal Glands: Unremarkable Kidneys: There is diminished enhancement of the right kidney as compared to the left and there is per inephric fat stranding. There is mild right hydronephrosis without an obstructing stone. Left kidney is unremarkable. Bladder: Interval placement of a Bhandari catheter with its tip terminating in the urinary bladder which is now underdistended compared to the prior study. There is diffuse emphysema within the wall of the urinary bladder reflecting emphysematous cystitis. Bowel: The stomach is grossly normal in appearance. Small bowel and colon are normal in caliber and d istribution. The appendix is visualized and is normal in caliber. Peritoneum: No large volume pneumoperitoneum to suggest visceral perforation. No ascites. Retroperitoneum: There is emphysema in the retroperitoneum including the bilateral psoas muscles and posterior to the abdominal aorta as well as in the thecal sac /epidural space and in the paraspinal m uscles. Lymphadenopathy: No mesenteric, retroperitoneal or periportal lymphadenopathy. Abdominal Wall and Mesentery: Unremarkable. Vasculature: The visualized abdominal aorta is normal in size and caliber. Abdominal and pelvic vess els demonstrate normal enhancement. Pelvic Organs: Unremarkable. Musculoskeletal: No aggressive focal bony lesions, acute fractures or dislocation. There is gas noted in the L4 and L5 vertebral bodies and posterior elements and the intervertebral disc spaces. Soft tissues: Unremarkable. IMPRESSION: 1. Interval placement of a Bhandari catheter with its tip terminating in the urinary bladder which is no w underdistended compared to the prior study. 2. Emphysematous cystitis. 3. Emphysema in the retroperitoneum including the bilateral psoas muscles and posterior to the abdomi nal aorta as well as in the thecal sac /epidural space, in the paraspinal muscles and lumbar spine at L4-L5 reflecting infection with gas-forming bacteria. 4. Right pyelonephritis with mild right hydronephrosis. No obstructing stone in the right kidney.
[2024-12-16] MEDS: IOHEXOL 300 MG/ML 100ML BOTTLE IJ ONE (08:31)
--- NOTE | 2024-12-16 11:21 | DVHINCON2 ---
Date of service: Dec 16, [address] Back Reason for Consultation emphysematous cystitis History of Present Illness History Source: Patient, RN Notes, MD Notes Exam Limitations: Language barrier HPI 59-year-old female presenting to the Emergency Department for evaluation of right flank pain that has been constant for the past 8 days. She is a poor h istorian, and a most history taken by her niece during the interview. She reports having been in [place] for at least one month. Approximately 7 days ago, she was admitted to a hospital in [place] for evaluation and treatment. During that hospitalization, a Powers catheter was placed, and she received a blood transfusion for anemia. The patient states she was diagnosed with kidney stones and pyelonephritis She was discharged from the hospital in [place] earlier today and came directly to our facility for further evaluation due to ongoing symptoms. On evaluation in the ED, patient is afebrile, vitals are stable. On current ED evaluation, she is afebrile with stable vital signs but blood pressure was 144/50 mmHg and significant normocytic anemia (Hgb 6.7) and marked hyperglycemia (glucose 508 mg/dL). Abdominal CT shows gas within the wall of the urinary bladder suggesting emphysematous cystitis. A large volume of gas is also seen tracking throughout the retroperitoneum including the psoas muscles, vertebral bodies, and epidural space of the spinal canal. The patient was started on IV antibiotics, Insulin and blood transfusion. Patient is admitted for further evaluation and management. Cardiovascular: HTN Endocrine: Diabetes Past Surgical History: None Family History: None Smoke: No ALCOHOL: none Drugs: None Home Meds Reported Medications [Metformin [id number] Mg] (Metformin Hcl) 1000 MG TAB No Conflict Check, MG 07/11/12 [Onglyza 5 Mg Tablet] No Conflict Check 07/11/12 [Ppohlvihc51 Mg] (Glipizide) 10 MG TAB No Conflict Check, MG 07/11/12 [onglyza] 5 MG No Conflict Check, 5 MG DAILY 08/21/09 Metformin Hydrochloride (Metformin Hcl) 1,000 Mg Tab, 1000 MG BID 08/21/09 Glyburide (Diabeta) 5 Mg Tab, 5 MG 08/21/09 Past Medical History Endocrine: IDDM Review of Systems Constitutional: Malaise H&P Exam Vital Signs Vital Signs Date Time Temp Pulse Resp B/P (MAP) Pulse Ox O2 Delivery O2 Flow Rate FiO2 12/16/24 10:00 101 19 153/66 (95) 97 12/16/24 08:00 99.6 99.6 12/16/24 07:49 Room Air* 0 21 Labs/Xrays [facility] [id number] [facility] [address] Ph: [phone] DIAGNOSTIC IMAGING Diagnostic Imaging Report : [id number] Signed PATIENT: MELO RODRÍGUEZ ACCT: [id number] UNIT: [id number] : 1965 LOC: OVERFLOW ROOM / BED: 1022-ERT / A AGE / SEX: 59 / F ADM STATUS: ADM IN SERVICE 0239 ORDERING PHYSICIAN: NIKI KIRKPATRICK PROCEDURE(s): ABPLIV - CT AB PEL WITH IV CON ONLY REASON: right flank pain ORDER NUMBER(s): [id number], ACCESSION NUMBER(s): [id number] Exam: CT CT AB PEL WITH IV CON ONLY History: Right flank pain Comparison Study: None Contrast: Type of contrast: Omnipaque 300 Contrast injected: 100 mL Contrast wasted: 0 TECHNIQUE: CT of the abdomen pelvis was performed with intravenous contrast. Coronal sagittal reformatted images are submitted. Radiation Dose Information: CT Dose: CTDI volume is 13.43 mGy. Dose-length product is 3.92 mGy*cm FINDINGS: Lung Bases: No acute or significant lung base finding. Normal heart size. No pleural or pericardial effusion. Liver: The liver is normal in size. No focal lesions. Normal hepatic vascular enhancement. Gallbladder and Biliary Tree: The gallbladder is unremarkable. Spleen: The spleen is normal in size. No splenic mass. Pancreas: The pancreas is normal in appearance without focal lesions or abnormal enhancement. Adrenal Glands: Unremarkable Kidneys: There is diminished enhancement of the right kidney as compared to the left and there is perinephric fat stranding. There is mild right hydronephrosis without an obstructing stone. Left kidney is unremarkable. Bladder: Interval placement of a Powers catheter with its tip terminating in the urinary bladder which is now underdistended compared to the prior study. There is diffuse emphysema within the wall of the urinary bladder reflecting emphysematous cystitis. Bowel: The stomach is grossly normal in appearance. Small bowel and colon are no rmal in caliber and distribution. The appendix is visualized and is normal in caliber. Peritoneum: No large volume pneumoperitoneum to suggest visceral perforation. No ascites. Retroperitoneum: There is emphysema in the retroperitoneum including the thad ateral psoas muscles and posterior to the abdominal aorta as well as in the thecal sac /epidural space and in the paraspinal muscles. Lymphadenopathy: No mesenteric, retroperitoneal or periportal lymphadenopathy. Abdominal Wall and Mesentery: Unremarkable. Vasculature: The visualized abdominal aorta is normal in size and caliber. Abdominal and pelvic vessels demonstrate normal enhancement. Pelvic Organs: Unremarkable. Musculoskeletal: No aggressive focal bony lesions, acute fractures or dislocation. There is gas noted in the L4 and L5 vertebral bodies and posterior elements and the intervertebral disc spaces. Soft tissues: Unremarkable. IMPRESSION: 1. Interval placement of a Powers catheter with its tip terminating in the urinary bladder which is now underdistended compared to the prior study. 2. Emphysematous cystitis. 3. Emphysema in the retroperitoneum including the bilateral psoas muscles and posterior to the abdominal aorta as well as in the thecal sac /epidural space, in the paraspinal muscles and lumbar spine at L4-L5 reflecting infection with gas-forming bacteria. 4. Right pyelonephritis with mild right hydronephrosis. No obstructing stone in the right kidney. ATED BY: OPAL QUEZADA MD DICTATED DATE/TIME: 12/16/24817 SIGNED BY: OPAL QUEZADA MD SIGNED DATE/TIME: 12/16/24817 CC: [place] [address] Ph: [phone] DIAGNOSTIC IMAGING Diagnostic Imaging Report : [id number] Signed PATIENT: MELO RODRÍGUEZ ACCT: [id number] UNIT: [id number] : 1965 LOC: OVERFLOW ROOM / BED: [address] [place] [address] AGE / SEX: 59 / F ADM STATUS: ADM IN SERVICE 0239 ORDERING PHYSICIAN: NIKI KIRKPATRICK PROCEDURE(s): KIDUS - KIDNEY REASON: right flank pain ORDER NUMBER(s): [id number], ACCESSION NUMBER(s): [id number] INDICATION: right flank pain TECHNIQUE: Multiple real-time sonographic images of the kidneys and bladder were obtained. COMPARISON: None FINDINGS: RIGHT kidney measures 12.9 cm in length. Trace hydronephrosis. LEFT kidney measures 15.0 cm in length. Trace hydronephrosis. No large intraluminal masses are seen in the bladder. Distended bladder measuring 873 cc. IMPRESSION: Distended urinary bladder with trace bilateral hydronephrosis. ATED BY: JOHN ORTIZ MD DICTATED DATE/TIME: 12/16/24711 SIGNED BY: JOHN ORTIZ MD SIGNED DATE/TIME: 12/16/24711 CC: Labs Test 12/16/24 07:18 12/16/24 01:50 12/16/24 00:05 Range/Units POC Glucose 253 H 70-106 mg/dl Urine Color Light-brown Yellow Urine Clarity Turbid H Clear Urine pH 5.5 5.0-9.0 Urine Specific [place] 1.018 1.001-1.035 Urine Protein 1+ H Negative Urine Ketones 1+ H Negative Urine Blood 3+ H Negative /uL Urine Nitrite Negative Negative Urine Bilirubin Negative Negative Urine Urobilinogen Normal Negative mg/dL Urine Leukocyte Esterase 2+ Negative /uL Urine RBC 1123 0 - 4 /hpf Urine WBC Clumps Present None Seen /hpf Urine Microscopic WBC 334 H 0-5 /HPF Urine Squamous Epithelial Cells Few <5 /hpf Urine Bacteria Many H None Seen /hpf Urine Glucose 4+ H Normal mg/dL White Blood Count 17.2 H 4.4-10.8 10^3/uL Red Blood Count 2.43 L 4.0-5.20 10^6/uL Hemoglobin 6.7 *L 12.2-16.2 g/dL Hematocrit 21.3 L 36.0-46.0 % Mean Corpuscular Volume 87.7 80.0-100.0 fL Mean Corpuscular Hemoglobin 27.6 L 28.0-32.0 pg Mean Corpuscular Hemoglobin Concent 31.5 L 32.0-36.0 g/dL Red Cell Distribution Width 16.0 H 11.8-14.3 % Platelet Count 313 140-450 10^3/uL Mean Platelet Volume 6.6 L 6.9-10.8 fL Neutrophils (%) (Auto) 84.2 H 37.0-80.0 % Lymphocytes (%) (Auto) 8.7 L 10.0-50.0 % Monocytes (%) (Auto) 6.4 0.0-12.0 % Eosinophils (%) (Auto) 0.5 0.0-7.0 % Basophils (%) (Auto) 0.2 0.0-2.0 % Neutrophils # (Auto) 14.5 H 1.6-8.6 10 ^3/uL Lymphocytes # (Auto) 1.5 0.4-5.4 10 ^3/uL Monocytes # (Auto) 1.1 0-1.3 10 ^3/uL Eosinophils # (Auto) 0.1 0-0.8 10 ^3/uL Basophils # (Auto) 0 0-0.2 10 ^3/uL Nucleated Red Blood Cells 0.0 % Prothrombin Time 13.7 H 9.3-11.8 sec Prothrombin Time INR 1.33 H 0.9-1.15 Activated Partial Thromboplast Time 29.6 24.5-34.5 SEC Sodium Level 129 L 136-145 mmol/L Potassium Level 4.1 3.5-5.1 mmol/L Chloride Level 96 L 98-107 mmol/L Carbon Dioxide Level 20 20-31 mmol/L Anion Gap 13 5-15 Blood Urea Nitrogen 18 9-23 mg/dL Creatinine 1.16 H 0.550-1.02 mg/dL Glomerular Filtration Rate Calc 54 >90 mL/min BUN/Creatinine Ratio 15.5 10.0-20.0 Serum Glucose 508 *H 74-106 mg/dL Serum Osmolality 306 H 278-298 mOsm/kg Lactic Acid Level 0.9 0.4-2.0 mmol/L Calcium Level 8.9 8.7-10.4 mg/dL Iron Level 33 L 50-170 ug/dL Total Iron Binding Capacity 164 L 250-425 ug/dL Percent Iron Saturation 20.1 15-50 % Total Bilirubin 0.4 0.2-1.0 mg/dL Aspartate Amino Transferase (AST) 16 13-40 U/L Alanine Aminotransferase (ALT) 16 7-40 U/L Alkaline Phosphatase 126 H 46-116 U/L Total Protein 7.6 5.7-8.2 g/dL Albumin 3.1 L 3.2-4.8 g/dL Beta-Hydroxybutyric Acid 2.905 H < 0.4 mmol/L Assessment/Plan Problem List: (1) UTI (2) uncontrolled diabetes mellitus (3) Neuropathy (4) Urinary tract infection (5) Contusion of rib on right side (6) Bronchitis (7) Musculoskeletal chest pain (8) Polyarthritis (9) UTI (urinary tract infection) (10) Hyperglycemia due to diabetes mellitus (11) Leukocytosis (12) Sepsis (13) Abnormal finding on CT scan (14) Severe anemia Plan treat UTI powers to gravity outpt cystoscopy and urodynamics TBA Plan discussed with: Patient, Other DEV BLAND METAL FABRICATOR APPRENTICE Dec 16, 2024 11:21
[2024-12-16 12:00] LABS: Hematocrit 27.4 % (36.0-46.0); Hemoglobin 8.9 g/dL (12.2-16.2); Mean Corpuscular Hemoglobin 27.7 pg (28.0-32.0); Mean Corpuscular Volume 84.8 fL (80.0-100.0); Nucleated Red Blood Cells % 0.0 %
[2024-12-16 12:18] LABS: Alanine Aminotransferase 19 U/L (7-40); Anion Gap 10 (5-15); BUN/Creatinine Ratio 17.1 (10.0-20.0); Blood Urea Nitrogen 12 mg/dL (9-23); Carbon Dioxide 24 mmol/L (20-31); Chloride 101 mmol/L (98-107); Potassium 3.9 mmol/L (3.5-5.1); Total Protein 6.9 g/dL (5.7-8.2)
[2024-12-16 12:19] LABS: Bilirubin, Total 0.6 mg/dL (0.2-1.0)
[2024-12-16 12:25] LABS: Albumin 2.9 g/dL (3.2-4.8); Alkaline Phosphatase 116 U/L (46-116); Calcium 8.4 mg/dL (8.7-10.4); Glucose 173 mg/dL (74-106); Magnesium 1.6 mg/dL (1.6-2.6); Sodium 135 mmol/L (136-145)
[2024-12-16] MEDS: VANCOMYCIN 750MG KIT 100 ML IV SCH (15:06)
[2024-12-16] MEDS: LIDOCAINE 5% TOPICAL PATCH TOP ONE (23:47)
[2024-12-16] MEDS: ACETAMINOPHEN 325 MG TAB PO PRN (23:47)
[2024-12-17] VITALS (9 sets, daily range): BP systolic 121–153; BP diastolic 53–79; PULSE 92–108; RESP 13–20; TEMP 97.8–101.1; O2SAT 96–99
[2024-12-17] MEDS ORDERED: INSULIN LANTUS (GLARGINE) 1 /0.01ml (100units/ml) SC SCH (07:00)
[2024-12-17 07:09] LABS: Hematocrit 26.0 % (36.0-46.0); Hemoglobin 8.6 g/dL (12.2-16.2); Mean Corpuscular Hemoglobin 28.5 pg (28.0-32.0); Mean Corpuscular Volume 86.0 fL (80.0-100.0); Nucleated Red Blood Cells % 0.0 %
[2024-12-17 07:29] LABS: Alanine Aminotransferase 18 U/L (7-40); Alkaline Phosphatase 103 U/L (46-116); Anion Gap 9 (5-15); BUN/Creatinine Ratio 15.4 (10.0-20.0); Blood Urea Nitrogen 10 mg/dL (9-23); Carbon Dioxide 26 mmol/L (20-31); Chloride 102 mmol/L (98-107); Sodium 137 mmol/L (136-145); Total Protein 7.0 g/dL (5.7-8.2)
[2024-12-17 07:30] LABS: Bilirubin, Total 0.5 mg/dL (0.2-1.0)
[2024-12-17 07:34] LABS: Albumin 2.9 g/dL (3.2-4.8); Calcium 8.5 mg/dL (8.7-10.4); Glucose 127 mg/dL (74-106); Potassium 3.2 mmol/L (3.5-5.1)
[2024-12-17] MEDS: PANTOPRAZOLE 40 MG/10 ML VIAL INJ IV SCH (08:29)
--- NOTE | 2024-12-17 09:34 | DVHPN2 ---
Subjective Better No pain Denies any pain White count is up to 20 Blood culture shows Gram-negative rosemary Changes from previous H/P or p: Changes Objective Vitals Vital Signs Date Time Temp Pulse Resp B/P (MAP) Pulse Ox O2 Delivery O2 Flow Rate FiO2 12/17/24 07:58 97.8 94 18 150/76 (100) 96 97.8 12/16/24 21:56 Room Air* 0 21 Intake/Output Intake and Output 12/17/24 06:59 Intake Total 350 ml Balance 350 ml Intake Oral 100 ml IV Total 250 ml General Appearance: Alert, Oriented X3, Cooperative, No acute distress Lungs: Clear to auscultation, Normal air movement Cardiovascular: Regular rate, Normal S1, Normal S2 Abdomen: Normal bowel sounds, Soft, No tenderness Extremities: No edema Medications Current Medications Medications Dose Ordered Sig/Simon Route Start Time Stop Time Status Last Admin Dose Admin Sodium Chloride 10 ml Q8HR IV 12/16/24 06:00 12/17/24 05:53 10 ML Diagnostic Test (Pha) 1 strip IQ4HR 12/16/24 04:00 12/17/24 08:29 1 STRIP Insulin Human Regular IQ4HR SC 12/16/24 04:00 12/17/24 08:41 2 UNITS Dextrose 50 ml UD PRN IV 12/16/24 02:45 Pantoprazole Sodium 40 mg DAILY IV 12/17/24 10:00 12/17/24 08:29 40 MG Ferrous Sulfate 325 mg DAILY PO 12/16/24 10:00 12/17/24 08:29 325 MG Cefepime HCl 50 ml @ 12.5 mls/hr Q12HR IV 12/16/24 10:00 12/16/24 22:47 12.5 MLS/HR Metronidazole 100 ml @ 100 mls/hr Q8HR IV 12/16/24 06:00 12/17/24 05:53 100 MLS/HR Vancomycin HCl 0 ml @ 0 mls/hr UD IV 12/16/24 04:15 Vancomycin HCl 100 ml @ 100 mls/hr Q12H IV 12/16/24 15:00 12/17/24 02:15 100 MLS/HR Insulin Glargine 20 units Q12H SC 12/17/24 21:00 Acetaminophen 650 mg Q6HP PRN PO 12/16/24 23:45 12/16/24 23:47 650 MG Laboratory Results Laboratory Tests 12/17/24 06:08 Chemistry Test 12/16/24 11:29 12/17/24 06:08 Albumin 2.9 g/dL (3.2-4.8) L 2.9 g/dL (3.2-4.8) L Calcium Level 8.4 mg/dL (8.7-10.4) L 8.5 mg/dL (8.7-10.4) L Magnesium Level 1.6 mg/dL (1.6-2.6) Total Protein 6.9 g/dL (5.7-8.2) 7.0 g/dL (5.7-8.2) LFT Test 12/16/24 11:29 12/17/24 06:08 Alanine Aminotransferase (ALT) 19 U/L (7-40) 18 U/L (7-40) Alkaline Phosphatase 116 U/L (46-116) 103 U/L (46-116) Aspartate Amino Transferase (AST) 26 U/L (13-40) 24 U/L (13-40) Total Bilirubin 0.6 mg/dL (0.2-1.0) 0.5 mg/dL (0.2-1.0) Urinalysis Test 12/16/24 01:50 Urine Color Light-brown (Yellow) Urine Clarity Turbid (Clear) H Urine pH 5.5 (5.0-9.0) Urine Specific [place] 1.018 (1.001-1.035) Urine Protein 1+ (Negative) H Urine Ketones 1+ (Negative) H Urine Blood 3+ /uL (Negative) H Urine Nitrite Negative (Negative) Urine Bilirubin Negative (Negative) Urine Urobilinogen Normal mg/dL (Negative) Urine Leukocyte Esterase 2+ /uL (Negative) Urine RBC 1123 /hpf (0 - 4) Urine WBC Clumps Present /hpf (None Seen) Urine Microscopic WBC 334 /HPF (0-5) H Urine Squamous Epithelial Cells Few /hpf (<5) Urine Bacteria Many /hpf (None Seen) H Urine Glucose 4+ mg/dL (Normal) H Microbiology Microbiology Date/Time Source Procedure Growth Status 12/16/24 00:52 Blood Blood Culture - Preliminary Resulted Assessment/Plan Assessment/Plan Sepsis due to sepsis UTI 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 Bacteremia with Gram-negative rods Anemia status post blood transfusion Type 2 diabetes Hyperosmolar hyperglycemic state Leukocytosis due to sepsis No nephrolithiasis right now Status post distended urinary bladder and hydronephrosis status post Bhandari catheter Hypokalemia Recent right kidney stone status post treatment in [place], no kidney stones currently Plan Continue IV antibiotics cefepime and Flagyl and vancomycin Replace potassium Insulin Urology consult on board Discussed with urology, medical treatment for now Keep Bhandari catheter and discharged home with a Bhandari Monitor closely Advance diet as tolerated Plan discussed with: Patient My Orders Orders - CRAIG HENDRICKS MD Procedure Category Date Status Time * Urology Consult CONS 12/16/24 Transmitted 09:53 Insulin Lantus PHA 12/17/24 In Process (Glargine) (Lantus) 21:00 Consistent DIET 12/16/24 Transmitted Carb(Ccho)Diabetes Lunch Date of Service: Dec 17, 2024 Billing Provider: CRAIG HENDRICKS MD Common Visit Codes: NOT BILLABLE CRAIG HENDRICKS MD Dec 17, 2024 09:34
[2024-12-17] MEDS: POTASSIUM CHL 20 Meq TABLET PO ONE (10:24)
[2024-12-17] MEDS: ACCU-CHEK COMFORT CURVE STRIP VI SCH (11:06)
[2024-12-17] MEDS: InsuLIN REG 1unit/0.01ml Soln (100units/ml) SC SCH (11:17)
[2024-12-17] MEDS: VANCOMYCIN 1GM/250ML KIT 250 ML IV SCH (16:33)
[2024-12-17] MEDS: CEFEPIME 1GM/50ML 50 ML IV SCH (17:41)
[2024-12-17] MEDS: INSULIN LANTUS (GLARGINE) 1 /0.01ml (100units/ml) SC SCH (22:00)
[2024-12-18] VITALS (8 sets, daily range): BP systolic 109–137; BP diastolic 64–78; PULSE 83–115; RESP 17–19; TEMP 98.3–100.3; O2SAT 95–97
[2024-12-18 05:58] LABS: Hematocrit 23.3 % (36.0-46.0); Hemoglobin 7.7 g/dL (12.2-16.2); Mean Corpuscular Hemoglobin 28.1 pg (28.0-32.0); Mean Corpuscular Volume 84.8 fL (80.0-100.0); Nucleated Red Blood Cells % 0.0 %
[2024-12-18 06:17] LABS: Alanine Aminotransferase 13 U/L (7-40); Alkaline Phosphatase 95 U/L (46-116); Anion Gap 7 (5-15); BUN/Creatinine Ratio 16.7 (10.0-20.0); Bilirubin, Total 0.3 mg/dL (0.2-1.0); Blood Urea Nitrogen 10 mg/dL (9-23); Carbon Dioxide 25 mmol/L (20-31); Chloride 103 mmol/L (98-107); Total Protein 6.4 g/dL (5.7-8.2)
[2024-12-18 06:19] LABS: Albumin 2.5 g/dL (3.2-4.8); Calcium 8.0 mg/dL (8.7-10.4); Glucose 160 mg/dL (74-106); Magnesium 1.5 mg/dL (1.6-2.6); Potassium 3.3 mmol/L (3.5-5.1); Sodium 135 mmol/L (136-145)
--- NOTE | 2024-12-18 10:01 | DVHPN2 ---
Subjective Complains of weakness Complains of constipation Cultures are still pending Changes from previous H/P or p: Changes Objective Vitals Vital Signs Date Time Temp Pulse Resp B/P (MAP) Pulse Ox O2 Delivery O2 Flow Rate FiO2 12/18/24 09:16 98.4 94 18 137/78 (97) 96 98.4 12/17/24 20:00 Room Air* 0 21 Intake/Output Intake and Output 12/18/24 07:00 Intake Total 1790 ml Output Total 2250 ml Balance -460 ml Intake Oral 990 ml IV Total 800 ml Output Urine Total 2250 ml General Appearance: Alert, Oriented X3, Cooperative, No acute distress Lungs: Clear to auscultation, Normal air movement Cardiovascular: Regular rate, Normal S1, Normal S2 Abdomen: Normal bowel sounds, Soft, No tenderness Extremities: No edema Medications Current Medications Medications Dose Ordered Sig/Simon Route Start Time Stop Time Status Last Admin Dose Admin Sodium Chloride 10 ml Q8HR IV 12/16/24 06:00 12/18/24 06:11 10 ML Dextrose 50 ml UD PRN IV 12/16/24 02:45 Pantoprazole Sodium 40 mg DAILY IV 12/17/24 10:00 12/17/24 08:29 40 MG Ferrous Sulfate 325 mg DAILY PO 12/16/24 10:00 12/17/24 08:29 325 MG Insulin Glargine 20 units Q12H SC 12/17/24 21:00 12/17/24 22:00 20 UNITS Acetaminophen 650 mg Q6HP PRN PO 12/16/24 23:45 12/18/24 05:42 650 MG Diagnostic Test (Pha) 1 strip ACHS 12/17/24 11:30 12/18/24 06:11 1 STRIP Insulin Human Regular ACHS SC 12/17/24 11:30 12/18/24 06:12 3 UNITS Cefepime HCl 50 ml @ 12.5 mls/hr Q8H IV 12/17/24 18:00 12/18/24 01:45 12.5 MLS/HR Laboratory Results Laboratory Tests 12/18/24 05:03 Chemistry Test 12/18/24 05:03 Albumin 2.5 g/dL (3.2-4.8) L Calcium Level 8.0 mg/dL (8.7-10.4) L Magnesium Level 1.5 mg/dL (1.6-2.6) L Total Protein 6.4 g/dL (5.7-8.2) LFT Test 12/18/24 05:03 Alanine Aminotransferase (ALT) 13 U/L (7-40) Alkaline Phosphatase 95 U/L (46-116) Aspartate Amino Transferase (AST) 14 U/L (13-40) Total Bilirubin 0.3 mg/dL (0.2-1.0) Urinalysis Test 12/16/24 01:50 Urine Color Light-brown (Yellow) Urine Clarity Turbid (Clear) H Urine pH 5.5 (5.0-9.0) Urine Specific [place] 1.018 (1.001-1.035) Urine Protein 1+ (Negative) H Urine Ketones 1+ (Negative) H Urine Blood 3+ /uL (Negative) H Urine Nitrite Negative (Negative) Urine Bilirubin Negative (Negative) Urine Urobilinogen Normal mg/dL (Negative) Urine Leukocyte Esterase 2+ /uL (Negative) Urine RBC 1123 /hpf (0 - 4) Urine WBC Clumps Present /hpf (None Seen) Urine Microscopic WBC 334 /HPF (0-5) H Urine Squamous Epithelial Cells Few /hpf (<5) Urine Bacteria Many /hpf (None Seen) H Urine Glucose 4+ mg/dL (Normal) H Microbiology Microbiology Date/Time Source Procedure Growth Status 12/16/24 23:58 Nose MRSA Screen - Final Complete 12/16/24 01:50 Voided Urine Urine Culture - Preliminary Resulted 12/16/24 00:52 Blood Blood Culture - Preliminary Resulted Assessment/Plan Assessment/Plan Sepsis due to sepsis UTI 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 Bacteremia with Gram-negative rods Anemia status post blood transfusion Type 2 diabetes Hyperosmolar hyperglycemic state Leukocytosis due to sepsis No nephrolithiasis right now Status post distended urinary bladder and hydronephrosis status post Bhandari catheter Hypokalemia Recent right kidney stone status post treatment in [place], no kidney stones currently Plan Continue IV antibiotics cefepime and Flagyl and vancomycin Replace potassium Insulin Urology consult on board Discussed with urology, medical treatment for now Keep Bhandari catheter and discharged home with a Bhandari Monitor closely Advance diet as tolerated 12/18/2024: Constipation: Start lactulose and Colace Weakness: Physical therapy Continue IV antibiotics Cultures are still pending Insulin Plan discussed with: Patient Date of Service: Dec 18, 2024 Billing Provider: CRAIG HENDRICKS MD Common Visit Codes: NOT BILLABLE CRAIG HENDRICKS MD Dec 18, 2024 10:01
[2024-12-18] MEDS: DOCUSATE SOD 100 MG CAP PO SCH (11:02)
[2024-12-18] MEDS: LACTULOSE 20Gm/30ML SOLN PO ONE (11:02)
[2024-12-18] MEDS: MAGNESIUM OXIDE 400 MG TAB PO SCH (11:02)
[2024-12-18] MEDS: POTASSIUM CHL 20 Meq TABLET PO ONE (11:02)
[2024-12-18] MEDS: HYDROcodone-ACET 5/325MG TAB PO PRN (12:52)
[2024-12-19] VITALS (8 sets, daily range): BP systolic 126–143; BP diastolic 65–75; PULSE 90–110; RESP 16–18; TEMP 97.8–100.4; O2SAT 95–97
[2024-12-19 07:46] LABS: Nucleated Red Blood Cells % 0.0 %
[2024-12-19 07:47] LABS: Hematocrit 23.1 % (36.0-46.0); Hemoglobin 7.6 g/dL (12.2-16.2); Mean Corpuscular Hemoglobin 28.0 pg (28.0-32.0); Mean Corpuscular Volume 84.4 fL (80.0-100.0)
--- NOTE | 2024-12-19 08:42 | DVHPN2 ---
Subjective Still c/o back pain and weakness Changes from previous H/P or p: Changes Objective Vitals Vital Signs Date Time Temp Pulse Resp B/P (MAP) Pulse Ox O2 Delivery O2 Flow Rate FiO2 12/19/24 05:00 97.8 101 18 143/70 (94) 96 97.8 12/18/24 20:00 Room Air* 0 21 Intake/Output Intake and Output 12/19/24 07:00 Intake Total 990 ml Output Total 3400 ml Balance -2410 ml Intake Oral 890 ml IV Total 100 ml Output Urine Total 3400 ml # Bowel Movements 1 General Appearance: Alert, Oriented X3, Cooperative, No acute distress Lungs: Clear to auscultation, Normal air movement Cardiovascular: Regular rate, Normal S1, Normal S2 Abdomen: Normal bowel sounds, Soft, No tenderness Extremities: No edema Medications Current Medications Medications Dose Ordered Sig/Simon Route Start Time Stop Time Status Last Admin Dose Admin Sodium Chloride 10 ml Q8HR IV 12/16/24 06:00 12/19/24 06:10 10 ML Dextrose 50 ml UD PRN IV 12/16/24 02:45 Pantoprazole Sodium 40 mg DAILY IV 12/17/24 10:00 12/18/24 10:11 40 MG Ferrous Sulfate 325 mg DAILY PO 12/16/24 10:00 12/18/24 10:11 325 MG Insulin Glargine 20 units Q12H SC 12/17/24 21:00 12/18/24 21:00 20 UNITS Acetaminophen 650 mg Q6HP PRN PO 12/16/24 23:45 12/18/24 05:42 650 MG Diagnostic Test (Pha) 1 strip ACHS 12/17/24 11:30 12/19/24 06:11 1 STRIP Insulin Human Regular ACHS SC 12/17/24 11:30 12/18/24 22:06 15 UNITS Cefepime HCl 50 ml @ 12.5 mls/hr Q8H IV 12/17/24 18:00 12/19/24 01:56 12.5 MLS/HR Docusate Sodium 100 mg BID PO 12/18/24 10:00 12/18/24 22:07 100 MG Magnesium Oxide 400 mg BID PO 12/18/24 10:00 12/18/24 22:07 400 MG Acetaminophen/ Hydrocodone Bitart 1 tab Q6HPRN PRN PO 12/18/24 11:45 12/19/24 06:16 1 TAB Laboratory Results Laboratory Tests 12/19/24 05:51 Chemistry Test 12/19/24 05:51 Albumin Pending Calcium Level Pending Magnesium Level Pending Total Protein Pending LFT Test 12/19/24 05:51 Alanine Aminotransferase (ALT) Pending Alkaline Phosphatase Pending Aspartate Amino Transferase (AST) Pending Total Bilirubin Pending Urinalysis Test 12/16/24 01:50 Urine Color Light-brown (Yellow) Urine Clarity Turbid (Clear) H Urine pH 5.5 (5.0-9.0) Urine Specific [place] 1.018 (1.001-1.035) Urine Protein 1+ (Negative) H Urine Ketones 1+ (Negative) H Urine Blood 3+ /uL (Negative) H Urine Nitrite Negative (Negative) Urine Bilirubin Negative (Negative) Urine Urobilinogen Normal mg/dL (Negative) Urine Leukocyte Esterase 2+ /uL (Negative) Urine RBC 1123 /hpf (0 - 4) Urine WBC Clumps Present /hpf (None Seen) Urine Microscopic WBC 334 /HPF (0-5) H Urine Squamous Epithelial Cells Few /hpf (<5) Urine Bacteria Many /hpf (None Seen) H Urine Glucose 4+ mg/dL (Normal) H Microbiology Microbiology Date/Time Source Procedure Growth Status 12/16/24 23:58 Nose MRSA Screen - Final Complete 12/16/24 01:50 Voided Urine Urine Culture - Final Complete 12/16/24 00:52 Blood Blood Culture - Final Escherichia coli Complete Assessment/Plan Assessment/Plan Sepsis due to sepsis UTI 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 Bacteremia with Gram-negative rods Anemia status post blood transfusion Type 2 diabetes Hyperosmolar hyperglycemic state Leukocytosis due to sepsis No nephrolithiasis right now Status post distended urinary bladder and hydronephrosis status post Bhandari catheter Hypokalemia Recent right kidney stone status post treatment in [place], no kidney stones currently Plan Continue IV antibiotics cefepime and Flagyl and vancomycin Replace potassium Insulin Urology consult on board Discussed with urology, medical treatment for now Keep Bhandari catheter and discharged home with a Bhandari Monitor closely Advance diet as tolerated 12/18/2024: Constipation: Start lactulose and Colace Weakness: Physical therapy Continue IV antibiotics Cultures are still pending Insulin 12/19/24: Continue IV antibiotics Bhandari Physical therapy Plan discussed with: Patient My Orders Orders - CRAIG HENDRICKS MD Procedure Category Date Status Time Pt Request For Service PT 12/18/24 Logged 09:59 Docusate Sodium PHA 12/18/24 In Process Capsule (Colace 10:00 Magnesium Oxide PHA 12/18/24 In Process Tablet (Mag-Ox Tablet) 10:00 Comprehensive LAB 12/19/24 In Process Metabolic Panel 04:00 Magnesium LAB 12/19/24 In Process 04:00 Hydrocodone-Acet PHA 12/18/24 In Process 5/325mg Tab ([place] 11:45 Date of Service: Dec 19, 2024 Billing Provider: CRAIG HENDRICKS MD Common Visit Codes: NOT BILLABLE CRAIG HENDRICKS MD Dec 19, 2024 08:42
[2024-12-19 11:16] LABS: BUN/Creatinine Ratio 15.0 (10.0-20.0); Blood Urea Nitrogen 9 mg/dL (9-23); Glucose 84 mg/dL (74-106); Magnesium 1.6 mg/dL (1.6-2.6); Total Protein 6.8 g/dL (5.7-8.2)
[2024-12-19 11:18] LABS: Anion Gap 12 (5-15)
[2024-12-19 11:29] LABS: Bilirubin, Total 0.3 mg/dL (0.2-1.0)
[2024-12-19 11:33] LABS: Carbon Dioxide 23 mmol/L (20-31); Chloride 102 mmol/L (98-107); Potassium 3.4 mmol/L (3.5-5.1); Sodium 137 mmol/L (136-145)
[2024-12-19 11:34] LABS: Alanine Aminotransferase 9 U/L (7-40); Albumin 2.7 g/dL (3.2-4.8); Calcium 8.0 mg/dL (8.7-10.4)
[2024-12-19 11:38] LABS: Alkaline Phosphatase 99 U/L (46-116)
[2024-12-20] VITALS (8 sets, daily range): BP systolic 119–144; BP diastolic 61–72; PULSE 87–104; RESP 14–20; TEMP 98.3–99.7; O2SAT 95–99
[2024-12-20] MEDS: POTASSIUM CHL 20 Meq TABLET PO ONE (09:23)
--- NOTE | 2024-12-20 09:44 | DVHPN2 ---
Subjective c/o weakness and back pain Changes from previous H/P or p: Changes Objective Vitals Vital Signs Date Time Temp Pulse Resp B/P (MAP) Pulse Ox O2 Delivery O2 Flow Rate FiO2 12/20/24 09:00 98.6 99 16 126/61 (82) 96 98.6 12/19/24 20:00 Room Air* 0 21 Intake/Output Intake and Output 12/20/24 07:00 Intake Total 1483 ml Output Total 3650 ml Balance -2167 ml Intake Oral 1383 ml IV Total 100 ml Output Urine Total 3650 ml # Bowel Movements 1 General Appearance: Alert, Oriented X3, Cooperative, No acute distress Lungs: Clear to auscultation, Normal air movement Cardiovascular: Regular rate, Normal S1, Normal S2 Abdomen: Normal bowel sounds, Soft, No tenderness Extremities: No edema Medications Current Medications Medications Dose Ordered Sig/Simon Route Start Time Stop Time Status Last Admin Dose Admin Sodium Chloride 10 ml Q8HR IV 12/16/24 06:00 12/20/24 06:07 10 ML Dextrose 50 ml UD PRN IV 12/16/24 02:45 Pantoprazole Sodium 40 mg DAILY IV 12/17/24 10:00 12/20/24 09:16 40 MG Ferrous Sulfate 325 mg DAILY PO 12/16/24 10:00 12/20/24 09:16 325 MG Insulin Glargine 20 units Q12H SC 12/17/24 21:00 12/20/24 09:24 20 UNITS Acetaminophen 650 mg Q6HP PRN PO 12/16/24 23:45 12/19/24 20:49 650 MG Diagnostic Test (Pha) 1 strip ACHS 12/17/24 11:30 12/20/24 06:24 1 STRIP Insulin Human Regular ACHS SC 12/17/24 11:30 12/19/24 21:27 3 UNITS Docusate Sodium 100 mg BID PO 12/18/24 10:00 12/20/24 09:16 100 MG Magnesium Oxide 400 mg BID PO 12/18/24 10:00 12/20/24 09:16 400 MG Acetaminophen/ Hydrocodone Bitart 1 tab Q6HPRN PRN PO 12/18/24 11:45 12/20/24 06:19 1 TAB Ceftriaxone Sodium 50 ml @ 100 mls/hr DAILY@09 IV 12/20/24 09:00 12/20/24 09:16 100 MLS/HR Laboratory Results Laboratory Tests 12/19/24 05:51 Urinalysis Test 12/16/24 01:50 Urine Color Light-brown (Yellow) Urine Clarity Turbid (Clear) H Urine pH 5.5 (5.0-9.0) Urine Specific [place] 1.018 (1.001-1.035) Urine Protein 1+ (Negative) H Urine Ketones 1+ (Negative) H Urine Blood 3+ /uL (Negative) H Urine Nitrite Negative (Negative) Urine Bilirubin Negative (Negative) Urine Urobilinogen Normal mg/dL (Negative) Urine Leukocyte Esterase 2+ /uL (Negative) Urine RBC 1123 /hpf (0 - 4) Urine WBC Clumps Present /hpf (None Seen) Urine Microscopic WBC 334 /HPF (0-5) H Urine Squamous Epithelial Cells Few /hpf (<5) Urine Bacteria Many /hpf (None Seen) H Urine Glucose 4+ mg/dL (Normal) H Microbiology Microbiology Date/Time Source Procedure Growth Status 12/16/24 23:58 Nose MRSA Screen - Final Complete 12/16/24 01:50 Voided Urine Urine Culture - Final Complete 12/16/24 00:52 Blood Blood Culture - Final Escherichia coli Complete Assessment/Plan Assessment/Plan Sepsis due to sepsis UTI 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 Bacteremia with Gram-negative rods Anemia status post blood transfusion Type 2 diabetes Hyperosmolar hyperglycemic state Leukocytosis due to sepsis No nephrolithiasis right now Status post distended urinary bladder and hydronephrosis status post Bhandari catheter Hypokalemia Recent right kidney stone status post treatment in [place], no kidney stones currently Plan Continue IV antibiotics cefepime and Flagyl and vancomycin Replace potassium Insulin Urology consult on board Discussed with urology, medical treatment for now Keep Bhandari catheter and discharged home with a Bhandari Monitor closely Advance diet as tolerated 12/18/2024: Constipation: Start lactulose and Colace Weakness: Physical therapy Continue IV antibiotics Cultures are still pending Insulin 12/19/24: Continue IV antibiotics Bhandari Physical therapy 12/20/24: Bacteremia with E. Coli: D/C Cefepime and start Rocephin UTI Retroperitoneal infection Weakness Sepsis due to UTI and bacteremia Continue Physical therapy Plan discussed with: Patient My Orders Orders - CRAIG HENDRICKS MD Procedure Category Date Status Time Ceftriaxone 1gm/50ml PHA 12/20/24 In Process ([facility]) 09:00 Complete Blood Count LAB 12/21/24 Verified 04:00 Comprehensive LAB 12/21/24 Verified Metabolic Panel 04:00 Magnesium LAB 12/21/24 Verified 04:00 Date of Service: Dec 20, 2024 Billing Provider: CRAIG HENDRICKS MD Common Visit Codes: NOT BILLABLE CRAIG HENDRICKS MD Dec 20, 2024 09:44
[2024-12-21] VITALS (10 sets, daily range): BP systolic 115–136; BP diastolic 67–72; PULSE 84–104; RESP 18; TEMP 98.2–101.9; O2SAT 96–100
[2024-12-21] MEDS: HYDROcodone-ACET 5/325MG TAB PO ONE (01:57)
[2024-12-21 06:44] LABS: Hematocrit 22.9 % (36.0-46.0); Hemoglobin 7.8 g/dL (12.2-16.2); Mean Corpuscular Hemoglobin 28.8 pg (28.0-32.0); Mean Corpuscular Volume 85.0 fL (80.0-100.0); Nucleated Red Blood Cells % 0.0 %
[2024-12-21 07:10] LABS: Alanine Aminotransferase 11 U/L (7-40); Alkaline Phosphatase 84 U/L (46-116); Anion Gap 8 (5-15); BUN/Creatinine Ratio 12.3 (10.0-20.0); Carbon Dioxide 30 mmol/L (20-31); Chloride 99 mmol/L (98-107); Magnesium 1.9 mg/dL (1.6-2.6); Potassium 3.8 mmol/L (3.5-5.1); Sodium 137 mmol/L (136-145); Total Protein 7.1 g/dL (5.7-8.2)
[2024-12-21 07:11] LABS: Albumin 2.9 g/dL (3.2-4.8); Bilirubin, Total 0.3 mg/dL (0.2-1.0); Blood Urea Nitrogen 8 mg/dL (9-23); Calcium 8.3 mg/dL (8.7-10.4); Glucose 73 mg/dL (74-106)
--- NOTE | 2024-12-21 10:59 | DVHPN2 ---
Subjective Better Ambulating well Blood culture is E coli Changes from previous H/P or p: Changes Objective Vitals Vital Signs Date Time Temp Pulse Resp B/P (MAP) Pulse Ox O2 Delivery O2 Flow Rate FiO2 12/21/24 08:40 99.4 91 18 136/67 (90) 97 99.4 12/21/24 08:00 Room Air* 0 21 Intake/Output Intake and Output 12/21/24 07:00 Intake Total 1470 ml Output Total 3400 ml Balance -1930 ml Intake Oral 1470 ml Output Urine Total 3400 ml General Appearance: Alert, Oriented X3, Cooperative, No acute distress Lungs: Clear to auscultation, Normal air movement Cardiovascular: Regular rate, Normal S1, Normal S2 Abdomen: Normal bowel sounds, Soft, No tenderness Extremities: No edema Medications Current Medications Medications Dose Ordered Sig/Simon Route Start Time Stop Time Status Last Admin Dose Admin Sodium Chloride 10 ml Q8HR IV 12/16/24 06:00 12/20/24 21:17 10 ML Dextrose 50 ml UD PRN IV 12/16/24 02:45 Pantoprazole Sodium 40 mg DAILY IV 12/17/24 10:00 12/20/24 09:16 40 MG Ferrous Sulfate 325 mg DAILY PO 12/16/24 10:00 12/20/24 09:16 325 MG Insulin Glargine 20 units Q12H SC 12/17/24 21:00 12/21/24 08:16 20 UNITS Acetaminophen 650 mg Q6HP PRN PO 12/16/24 23:45 12/20/24 15:45 650 MG Diagnostic Test (Pha) 1 strip ACHS 12/17/24 11:30 12/21/24 06:29 1 STRIP Insulin Human Regular ACHS SC 12/17/24 11:30 12/20/24 21:14 2 UNITS Docusate Sodium 100 mg BID PO 12/18/24 10:00 12/20/24 09:16 100 MG Magnesium Oxide 400 mg BID PO 12/18/24 10:00 12/20/24 21:17 400 MG Acetaminophen/ Hydrocodone Bitart 1 tab Q6HPRN PRN PO 12/18/24 11:45 12/21/24 08:44 1 TAB Ceftriaxone Sodium 50 ml @ 100 mls/hr DAILY@09 IV 12/20/24 09:00 12/21/24 08:17 100 MLS/HR Laboratory Results Laboratory Tests 12/21/24 05:25 Chemistry Test 12/21/24 05:25 Albumin 2.9 g/dL (3.2-4.8) L Calcium Level 8.3 mg/dL (8.7-10.4) L Magnesium Level 1.9 mg/dL (1.6-2.6) Total Protein 7.1 g/dL (5.7-8.2) LFT Test 12/21/24 05:25 Alanine Aminotransferase (ALT) 11 U/L (7-40) Alkaline Phosphatase 84 U/L (46-116) Aspartate Amino Transferase (AST) 25 U/L (13-40) Total Bilirubin 0.3 mg/dL (0.2-1.0) Urinalysis Test 12/16/24 01:50 Urine Color Light-brown (Yellow) Urine Clarity Turbid (Clear) H Urine pH 5.5 (5.0-9.0) Urine Specific [place] 1.018 (1.001-1.035) Urine Protein 1+ (Negative) H Urine Ketones 1+ (Negative) H Urine Blood 3+ /uL (Negative) H Urine Nitrite Negative (Negative) Urine Bilirubin Negative (Negative) Urine Urobilinogen Normal mg/dL (Negative) Urine Leukocyte Esterase 2+ /uL (Negative) Urine RBC 1123 /hpf (0 - 4) Urine WBC Clumps Present /hpf (None Seen) Urine Microscopic WBC 334 /HPF (0-5) H Urine Squamous Epithelial Cells Few /hpf (<5) Urine Bacteria Many /hpf (None Seen) H Urine Glucose 4+ mg/dL (Normal) H Microbiology Microbiology Date/Time Source Procedure Growth Status 12/16/24 23:58 Nose MRSA Screen - Final Complete 12/16/24 01:50 Voided Urine Urine Culture - Final Complete 12/16/24 00:52 Blood Blood Culture - Final Escherichia coli Complete Assessment/Plan Assessment/Plan Sepsis due to sepsis UTI 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 Bacteremia with Gram-negative rods Anemia status post blood transfusion Type 2 diabetes Hyperosmolar hyperglycemic state Leukocytosis due to sepsis No nephrolithiasis right now Status post distended urinary bladder and hydronephrosis status post Bhandari catheter Hypokalemia Recent right kidney stone status post treatment in [place], no kidney stones currently Plan Continue IV antibiotics cefepime and Flagyl and vancomycin Replace potassium Insulin Urology consult on board Discussed with urology, medical treatment for now Keep Bhandari catheter and discharged home with a Bhandari Monitor closely Advance diet as tolerated 12/18/2024: Constipation: Start lactulose and Colace Weakness: Physical therapy Continue IV antibiotics Cultures are still pending Insulin 12/19/24: Continue IV antibiotics Bhandari Physical therapy 12/20/24: Bacteremia with E. Coli: D/C Cefepime and start Rocephin UTI Retroperitoneal infection Weakness Sepsis due to UTI and bacteremia Continue Physical therapy 12/21/2024: Continue the current regimen IV antibiotics with Rocephin Continue physical therapy Out of bed as tolerated Keep the Bhandari The patient will need to go home with a Bhandari catheter in 1-2 days on oral antibiotics Plan discussed with: Patient My Orders Orders - CRAIG HENDRICKS MD Procedure Category Date Status Time Initiate Vte ALLAN 12/21/24 In Process Prophylaxis 08:53 Date of Service: Dec 21, 2024 Billing Provider: CRAIG HENDRICKS MD Common Visit Codes: NOT BILLABLE CRAIG HENDRICKS MD Dec 21, 2024 10:59
[2024-12-22] VITALS (8 sets, daily range): BP systolic 120–141; BP diastolic 60–78; PULSE 78–105; RESP 18–21; TEMP 97.9–99.7; O2SAT 95–98
[2024-12-22 06:19] LABS: Hematocrit 23.0 % (36.0-46.0); Hemoglobin 7.6 g/dL (12.2-16.2); Mean Corpuscular Hemoglobin 27.7 pg (28.0-32.0); Mean Corpuscular Volume 84.2 fL (80.0-100.0); Nucleated Red Blood Cells % 0.0 %
[2024-12-22 06:34] LABS: Anion Gap 9 (5-15); Carbon Dioxide 28 mmol/L (20-31)
[2024-12-22 06:40] LABS: BUN/Creatinine Ratio 15.3 (10.0-20.0); Blood Urea Nitrogen 9 mg/dL (9-23)
[2024-12-22 06:41] LABS: Magnesium 1.9 mg/dL (1.6-2.6)
[2024-12-22 06:47] LABS: Calcium 8.2 mg/dL (8.7-10.4); Chloride 96 mmol/L (98-107); Glucose 72 mg/dL (74-106); Potassium 3.5 mmol/L (3.5-5.1); Sodium 133 mmol/L (136-145)
--- NOTE | 2024-12-22 13:57 | DVHPN2 ---
Subjective No new complaints Better Ambulating well Blood culture is E coli Changes from previous H/P or p: Changes Objective Vitals Vital Signs Date Time Temp Pulse Resp B/P (MAP) Pulse Ox O2 Delivery O2 Flow Rate FiO2 12/22/24 12:37 98.6 95 18 138/60 (86) 98 98.6 12/22/24 08:00 Room Air* 0 21 Intake/Output Intake and Output 12/22/24 07:00 Intake Total 1450 ml Output Total 2700 ml Balance -1250 ml Intake Oral 1400 ml IV Total 50 ml Output Urine Total 2700 ml General Appearance: Alert, Oriented X3, Cooperative, No acute distress Lungs: Clear to auscultation, Normal air movement Cardiovascular: Regular rate, Normal S1, Normal S2 Abdomen: Normal bowel sounds, Soft, No tenderness Extremities: No edema Medications Current Medications Medications Dose Ordered Sig/Simon Route Start Time Stop Time Status Last Admin Dose Admin Sodium Chloride 10 ml Q8HR IV 12/16/24 06:00 12/22/24 05:56 10 ML Dextrose 50 ml UD PRN IV 12/16/24 02:45 Pantoprazole Sodium 40 mg DAILY IV 12/17/24 10:00 12/22/24 09:18 40 MG Ferrous Sulfate 325 mg DAILY PO 12/16/24 10:00 12/22/24 09:18 325 MG Insulin Glargine 20 units Q12H SC 12/17/24 21:00 12/22/24 09:21 20 UNITS Acetaminophen 650 mg Q6HP PRN PO 12/16/24 23:45 12/20/24 15:45 650 MG Diagnostic Test (Pha) 1 strip ACHS 12/17/24 11:30 12/22/24 12:00 1 STRIP Insulin Human Regular ACHS SC 12/17/24 11:30 12/22/24 11:59 3 UNITS Docusate Sodium 100 mg BID PO 12/18/24 10:00 12/22/24 09:18 100 MG Magnesium Oxide 400 mg BID PO 12/18/24 10:00 12/22/24 09:18 400 MG Acetaminophen/ Hydrocodone Bitart 1 tab Q6HPRN PRN PO 12/18/24 11:45 12/22/24 11:57 1 TAB Ceftriaxone Sodium 50 ml @ 100 mls/hr DAILY@09 IV 12/20/24 09:00 12/22/24 09:18 100 MLS/HR Laboratory Results Laboratory Tests 12/22/24 04:40 Chemistry Test 12/22/24 04:40 Calcium Level 8.2 mg/dL (8.7-10.4) L Magnesium Level 1.9 mg/dL (1.6-2.6) Urinalysis Test 12/16/24 01:50 Urine Color Light-brown (Yellow) Urine Clarity Turbid (Clear) H Urine pH 5.5 (5.0-9.0) Urine Specific [place] 1.018 (1.001-1.035) Urine Protein 1+ (Negative) H Urine Ketones 1+ (Negative) H Urine Blood 3+ /uL (Negative) H Urine Nitrite Negative (Negative) Urine Bilirubin Negative (Negative) Urine Urobilinogen Normal mg/dL (Negative) Urine Leukocyte Esterase 2+ /uL (Negative) Urine RBC 1123 /hpf (0 - 4) Urine WBC Clumps Present /hpf (None Seen) Urine Microscopic WBC 334 /HPF (0-5) H Urine Squamous Epithelial Cells Few /hpf (<5) Urine Bacteria Many /hpf (None Seen) H Urine Glucose 4+ mg/dL (Normal) H Microbiology Microbiology Date/Time Source Procedure Growth Status 12/16/24 23:58 Nose MRSA Screen - Final Complete 12/16/24 01:50 Voided Urine Urine Culture - Final Complete 12/16/24 00:52 Blood Blood Culture - Final Escherichia coli Complete Assessment/Plan Assessment/Plan Sepsis due to sepsis UTI 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 Bacteremia with Gram-negative rods Anemia status post blood transfusion Type 2 diabetes Hyperosmolar hyperglycemic state Leukocytosis due to sepsis No nephrolithiasis right now Status post distended urinary bladder and hydronephrosis status post Bhandari catheter Hypokalemia Recent right kidney stone status post treatment in [place], no kidney stones currently Plan Continue IV antibiotics cefepime and Flagyl and vancomycin Replace potassium Insulin Urology consult on board Discussed with urology, medical treatment for now Keep Bhandari catheter and discharged home with a Bhandari Monitor closely Advance diet as tolerated 12/18/2024: Constipation: Start lactulose and Colace Weakness: Physical therapy Continue IV antibiotics Cultures are still pending Insulin 12/19/24: Continue IV antibiotics Bhandari Physical therapy 12/20/24: Bacteremia with E. Coli: D/C Cefepime and start Rocephin UTI Retroperitoneal infection Weakness Sepsis due to UTI and bacteremia Continue Physical therapy 12/21/2024: Continue the current regimen IV antibiotics with Rocephin Continue physical therapy Out of bed as tolerated Keep the Bhandari The patient will need to go home with a Bhandari catheter in 1-2 days on oral antibiotics 12/22/2024: Continue the current management with IV antibiotics Out of bed as tolerated Keep the Bhandari Plan discussed with: Patient Date of Service: Dec 22, 2024 Billing Provider: CRAIG HENDRICKS MD Common Visit Codes: NOT BILLABLE CRAIG HENDRICKS MD Dec 22, 2024 13:57
[2024-12-23] VITALS (8 sets, daily range): BP systolic 114–150; BP diastolic 62–75; PULSE 91–105; RESP 17–22; TEMP 97.9–99.3; O2SAT 95–98
--- NOTE | 2024-12-23 09:53 | DVHPN2 ---
Subjective Doing well Blood culture showed E coli sensitive only to IV antibiotics She will need a midline and IV antibiotics at home for 2 weeks with home health Changes from previous H/P or p: Changes Objective Vitals Vital Signs Date Time Temp Pulse Resp B/P (MAP) Pulse Ox O2 Delivery O2 Flow Rate FiO2 12/23/24 09:00 99.3 96 22 122/62 (82) 96 99.3 12/22/24 20:00 Room Air* 0 21 Intake/Output Intake and Output 12/23/24 06:59 Intake Total 1890 ml Output Total 3130 ml Balance -1240 ml Intake Oral 1840 ml IV Total 50 ml Output Urine Total 3130 ml General Appearance: Alert, Oriented X3, Cooperative, No acute distress Lungs: Clear to auscultation, Normal air movement Cardiovascular: Regular rate, Normal S1, Normal S2 Abdomen: Normal bowel sounds, Soft, No tenderness Extremities: No edema Medications Current Medications Medications Dose Ordered Sig/Simon Route Start Time Stop Time Status Last Admin Dose Admin Sodium Chloride 10 ml Q8HR IV 12/16/24 06:00 12/23/24 06:18 10 ML Dextrose 50 ml UD PRN IV 12/16/24 02:45 Pantoprazole Sodium 40 mg DAILY IV 12/17/24 10:00 12/22/24 09:18 40 MG Ferrous Sulfate 325 mg DAILY PO 12/16/24 10:00 12/22/24 09:18 325 MG Insulin Glargine 20 units Q12H SC 12/17/24 21:00 12/22/24 21:27 20 UNITS Acetaminophen 650 mg Q6HP PRN PO 12/16/24 23:45 12/20/24 15:45 650 MG Diagnostic Test (Pha) 1 strip ACHS 12/17/24 11:30 12/23/24 06:20 1 STRIP Insulin Human Regular ACHS SC 12/17/24 11:30 12/23/24 06:18 2 UNITS Docusate Sodium 100 mg BID PO 12/18/24 10:00 12/22/24 21:25 100 MG Magnesium Oxide 400 mg BID PO 12/18/24 10:00 12/22/24 21:25 400 MG Acetaminophen/ Hydrocodone Bitart 1 tab Q6HPRN PRN PO 12/18/24 11:45 12/23/24 06:59 1 TAB Ceftriaxone Sodium 50 ml @ 100 mls/hr DAILY@09 IV 12/20/24 09:00 12/22/24 09:18 100 MLS/HR Laboratory Results Laboratory Tests 12/22/24 04:40 Urinalysis Test 12/16/24 01:50 Urine Color Light-brown (Yellow) Urine Clarity Turbid (Clear) H Urine pH 5.5 (5.0-9.0) Urine Specific [place] 1.018 (1.001-1.035) Urine Protein 1+ (Negative) H Urine Ketones 1+ (Negative) H Urine Blood 3+ /uL (Negative) H Urine Nitrite Negative (Negative) Urine Bilirubin Negative (Negative) Urine Urobilinogen Normal mg/dL (Negative) Urine Leukocyte Esterase 2+ /uL (Negative) Urine RBC 1123 /hpf (0 - 4) Urine WBC Clumps Present /hpf (None Seen) Urine Microscopic WBC 334 /HPF (0-5) H Urine Squamous Epithelial Cells Few /hpf (<5) Urine Bacteria Many /hpf (None Seen) H Urine Glucose 4+ mg/dL (Normal) H Microbiology Microbiology Date/Time Source Procedure Growth Status 12/16/24 23:58 Nose MRSA Screen - Final Complete 12/16/24 01:50 Voided Urine Urine Culture - Final Complete 12/16/24 00:52 Blood Blood Culture - Final Escherichia coli Complete Assessment/Plan Assessment/Plan Sepsis due to sepsis UTI 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 Bacteremia with Gram-negative rods Anemia status post blood transfusion Type 2 diabetes Hyperosmolar hyperglycemic state Leukocytosis due to sepsis No nephrolithiasis right now Status post distended urinary bladder and hydronephrosis status post Bhandari catheter Hypokalemia Recent right kidney stone status post treatment in [place], no kidney stones currently Plan Continue IV antibiotics cefepime and Flagyl and vancomycin Replace potassium Insulin Urology consult on board Discussed with urology, medical treatment for now Keep Bhandari catheter and discharged home with a Hbandari Monitor closely Advance diet as tolerated 12/18/2024: Constipation: Start lactulose and Colace Weakness: Physical therapy Continue IV antibiotics Cultures are still pending Insulin 12/19/24: Continue IV antibiotics Bhandari Physical therapy 12/20/24: Bacteremia with E. Coli: D/C Cefepime and start Rocephin UTI Retroperitoneal infection Weakness Sepsis due to UTI and bacteremia Continue Physical therapy 12/21/2024: Continue the current regimen IV antibiotics with Rocephin Continue physical therapy Out of bed as tolerated Keep the Bhandari The patient will need to go home with a Bhandari catheter in 1-2 days on oral antibiotics 12/22/2024: Continue the current management with IV antibiotics Out of bed as tolerated Keep the Bhandari 12/23/2024: Midline Arrange IV antibiotics Rocephin 1 g IV daily for 2 weeks at home with home health Home health for IV antibiotics and physical therapy Discharge once the above is done Plan discussed with: Patient My Orders Orders - CRAIG HENDRICKS MD Procedure Category Date Status Time * Sales Activity Manager CONS 12/23/24 Transmitted Consult Ss Consult To Arrange ALLAN 12/23/24 In Process Home Iv 09:18 Ss Consult To Arrange ALLAN 12/23/24 Verified Home Iv 09:50 Date of Service: Dec 23, 2024 Billing Provider: CRAIG HENDRICKS MD Common Visit Codes: NOT BILLABLE CRAIG HENDRICKS MD Dec 23, 2024 09:53
[2024-12-24 01:00] VITALS: BP 137/65; PULSE 100; RESP 18; TEMP 97.6; O2SAT 97
[2024-12-24 05:00] VITALS: BP 149/71; PULSE 98; RESP 18; TEMP 97.8; O2SAT 98
[2024-12-24 08:00] VITALS: PULSE 91
[2024-12-24 09:03] VITALS: BP 129/79; PULSE 87; RESP 17; TEMP 97.2; O2SAT 96
--- NOTE | 2024-12-24 09:33 | DVHDS2 ---
Discharge Summary Date of Admission Dec 16, 2024 at 02:42 Date of Discharge: Dec 24, 2024 Labs/Diagnostic Data: Laboratory Results Test 12/24/24 06:43 12/22/24 04:40 12/21/24 05:25 12/17/24 14:12 POC Glucose 132 mg/dl (70-106) White Blood Count 14.3 10^3/uL (4.4-10.8) Red Blood Count 2.73 10^6/uL (4.0-5.20) Hemoglobin 7.6 g/dL (12.2-16.2) Hematocrit 23.0 % (36.0-46.0) Mean Corpuscular Volume 84.2 fL (80.0-100.0) Mean Corpuscular Hemoglobin 27.7 pg (28.0-32.0) Mean Corpuscular Hemoglobin Concent 33.0 g/dL (32.0-36.0) Red Cell Distribution Width 15.4 % (11.8-14.3) Platelet Count 687 10^3/uL (140-450) Mean Platelet Volume 6.7 fL (6.9-10.8) Neutrophils (%) (Auto) 69.3 % (37.0-80.0) Lymphocytes (%) (Auto) 21.9 % (10.0-50.0) Monocytes (%) (Auto) 7.9 % (0.0-12.0) Eosinophils (%) (Auto) 0.3 % (0.0-7.0) Basophils (%) (Auto) 0.6 % (0.0-2.0) Neutrophils # (Auto) 9.9 10 ^3/uL (1.6-8.6) Lymphocytes # (Auto) 3.1 10 ^3/uL (0.4-5.4) Monocytes # (Auto) 1.1 10 ^3/uL (0-1.3) Eosinophils # (Auto) 0 10 ^3/uL (0-0.8) Basophils # (Auto) 0.1 10 ^3/uL (0-0.2) Nucleated Red Blood Cells 0.0 % Sodium Level 133 mmol/L (136-145) Potassium Level 3.5 mmol/L (3.5-5.1) Chloride Level 96 mmol/L (98-107) Carbon Dioxide Level 28 mmol/L (20-31) Anion Gap 9 (5-15) Blood Urea Nitrogen 9 mg/dL (9-23) Creatinine 0.59 mg/dL (0.550-1.02) Glomerular Filtration Rate Calc 104 mL/min (>90) BUN/Creatinine Ratio 15.3 (10.0-20.0) Serum Glucose 72 mg/dL (74-106) Calcium Level 8.2 mg/dL (8.7-10.4) Magnesium Level 1.9 mg/dL (1.6-2.6) Total Bilirubin 0.3 mg/dL (0.2-1.0) Aspartate Amino Transferase (AST) 25 U/L (13-40) Alanine Aminotransferase (ALT) 11 U/L (7-40) Alkaline Phosphatase 84 U/L (46-116) Total Protein 7.1 g/dL (5.7-8.2) Albumin 2.9 g/dL (3.2-4.8) Vancomycin Level Trough 8.2 ug/mL (5-10) Test 12/16/24 23:59 12/16/24 01:50 12/16/24 00:05 Lactic Acid Level 1.2 mmol/L (0.4-2.0) Urine Color Light-brown (Yellow) Urine Clarity Turbid (Clear) Urine pH 5.5 (5.0-9.0) Urine Specific [place] 1.018 (1.001-1.035) Urine Protein 1+ (Negative) Urine Ketones 1+ (Negative) Urine Blood 3+ /uL (Negative) Urine Nitrite Negative (Negative) Urine Bilirubin Negative (Negative) Urine Urobilinogen Normal mg/dL (Negative) Urine Leukocyte Esterase 2+ /uL (Negative) Urine RBC 1123 /hpf (0 - 4) Urine WBC Clumps Present /hpf (None Seen) Urine Microscopic WBC 334 /HPF (0-5) Urine Squamous Epithelial Cells Few /hpf (<5) Urine Bacteria Many /hpf (None Seen) Urine Glucose 4+ mg/dL (Normal) Prothrombin Time 13.7 sec (9.3-11.8) Prothrombin Time INR 1.33 (0.9-1.15) Activated Partial Thromboplast Time 29.6 SEC (24.5-34.5) Serum Osmolality 306 mOsm/kg (278-298) Iron Level 33 ug/dL (50-170) Total Iron Binding Capacity 164 ug/dL (250-425) Percent Iron Saturation 20.1 % (15-50) Beta-Hydroxybutyric Acid 2.905 mmol/L (< 0.4) Other Laboratory Tests 12/22/24 04:40 Brief Hx & Hospital Course: Final diagnoses: Sepsis due to sepsis UTI 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 Bacteremia with Gram-negative rods Anemia status post blood transfusion Type 2 diabetes Hyperosmolar hyperglycemic state Leukocytosis due to sepsis No nephrolithiasis right now Status post distended urinary bladder and hydronephrosis status post Bhandari catheter Hypokalemia Recent right kidney stone status post treatment in [place], no kidney stones currently 59-year-old female who was admitted for back pain and flank pain and UTI She was found to have emphysematous cystitis with retroperitoneal emphysema and also bacteremia Bacteremia grew Gram-negative rods which came back to be E coli but sensitive only to IV antibiotics She will be given IV antibiotics and now she was switched to Rocephin IV It is sensitive to Rocephin She will be discharged home on Rocephin 1 g IV daily for 2 more weeks She has been improving and she started ambulating She was seen by Urology who recommended to keep the Bhandari catheter and follow up as an outpatient Resume other home medications Condition at Discharge: Stable Final Diagnosis/Problems List Sepsis due to sepsis UTI 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 Bacteremia with Gram-negative rods Anemia status post blood transfusion Type 2 diabetes Hyperosmolar hyperglycemic state Leukocytosis due to sepsis No nephrolithiasis right now Status post distended urinary bladder and hydronephrosis status post Bhandari catheter Hypokalemia Recent right kidney stone status post treatment in [place], no kidney stones currently Discharge Disposition: Home with Health Services [facility] Discharge Will this Physician continue t: No Discharge Instruct/Medications Scheduled Metformin Hydrochloride (Metformin Hcl), 1,000 MG BID, (Reported) [onglyza], 5 MG DAILY, (Reported) Miscellaneous Medications Glyburide (Diabeta), 5 MG, (Reported) [[id number] Mg], MG, (Reported) [Metformin [id number] Mg], MG, (Reported) [Onglyza 5 Mg Tablet], (Reported) Discharge Statement: "Patient was advised to return to the ER or call 911 if any headaches, dizziness, shortness of breath, chest pain, abdominal pain, bleeding, fevers, or worsening of medical condition. Patient was counseled about treatment plan, medications, possible side effects, patientverbalized understanding. All questions were answered to the best of my ability. This discharge took greater then 30 minutes in planning, reviewing documentation, counseling the patient, and discussing with other team members." ASSESSMENT ASSESSMENT Assessment Date of Service: Dec 24, 2024 Billing Provider: CRAIG HENDRICKS MD Common Visit Codes: NOT BILLABLE CRAIG HENDRICKS MD Dec 24, 2024 09:32
[2024-12-24] MEDS: LACTULOSE 20Gm/30ML SOLN PO ONE (10:02)
[2024-12-24] MEDS ORDERED: HYDR-4902 PO (12:42)
[2024-12-24 13:00] VITALS: BP 136/61; PULSE 96; RESP 17; TEMP 99.6; O2SAT 94
== END 2024-12-24 17:08 | disposition home health service (06) | DRG 871 ==
LOC: ER 23:04 → OVERFLOW 12-16 02:42 → TELE-CENTR 12-16 21:50
PROVIDERS: ADMIT Internal Medicine Geriatric Medicine; ATTEND Internal Medicine Geriatric Medicine
PROC: 30233N1 Transfusion of Nonautologous Red Blood Cells into Peripheral Vein, Percutaneous Approach (ICD-10-PCS; 2024-12-16)
PROC: 05HA33Z Insertion of Infusion Device into Left Brachial Vein, Percutaneous Approach (ICD-10-PCS; principal; 2024-12-23)
PROC: B54MZZA Ultrasonography of Right Upper Extremity Veins, Guidance (ICD-10-PCS; 2024-12-23)
DX: A41.51 Sepsis due to Escherichia coli [E. coli] (principal); N17.0 Acute kidney failure with tubular necrosis; E44.1 Mild protein-calorie malnutrition; N13.6 Pyonephrosis; D64.9 Anemia, unspecified; E11.40 Type 2 diabetes mellitus with diabetic neuropathy, unspecified; N30.80 Other cystitis without hematuria; J40 Bronchitis, not specified as acute or chronic; I10 Essential (primary) hypertension; J43.9 Emphysema, unspecified; E11.65 Type 2 diabetes mellitus with hyperglycemia; M13.0 Polyarthritis, unspecified; S20.211A Contusion of right front wall of thorax, initial encounter; X58.XXXA Exposure to other specified factors, initial encounter; E87.6 Hypokalemia; Z79.4 Long term (current) use of insulin; Z87.442 Personal history of urinary calculi; Y93.89 Activity, other specified; Y92.89 Other specified places as the place of occurrence of the external cause; Y99.8 Other external cause status; Z68.28 Body mass index [BMI] 28.0-28.9, adult
CPT/HCPCS: 36415; 71045; 74176; 74177; 76775; 80048; 80053; 80202; 81001; 82010; 82962; 83540; 83550; 83605; 83735; 83930; 85025; 85610; 85730; 86850; 86900; 86901; 86920; 87040; 87077; 87081; 87086; 87186; 96374; 96375; 97163; G0378; J1815; J2470; J2543; J3490

== ENCOUNTER 2025-01-01 20:02 | Emergency (ER) | payer BC, OTHER ==
[~2025-01-01] VITALS: Ht 167.6 cm; Wt 70.2 kg
[~2025-01-01 20:02] MED LIST changes: +HYDR-4902 PO
--- NOTE | 2025-01-01 20:34 | ED.PDOC ---
History of Present Illness HPI Comments 59 year old female with PMHx DM, HTN presents to the ED with a chief complaint of generalized body pain onset 2 weeks. Patient states she had a procedure for kidney stones done in [place] on 12/02/24, was was admitted to [facility] due to sepsis, discharged on 12/24/24 with IV antibiotics. Patient came to ED today due to generalized body pain, severe back pain as well as chest pain worsens with deep breaths. She noticed pain worsened today, came to ED. Denies shortness of breath, dizziness, fall, trauma, nausea, vomiting, diarrhea, dysuria, hematuria, fever, chills, hematemesis, blood in stool, melena. No other symptoms or modifying factors present at this time. Chief Complaint: Body Pain Time Seen by MD: 20:30 Primary Care Provider: VIKK Reviewed Notes: Medications, Allergies Allergies: Coded Allergies: NO KNOWN ALLERGIES (Unverified , 08/21/09) Home Meds Active Scripts Gabapentin (Once-Daily) (Gabapentin) 300 Mg Tab, 300 MG PO Q6HP PRN, #60 TAB Prov:OLINDA ALVARES MD 01/01/25 Ferrous Sulfate (FERROUS SULFATE) 325 Mg Tb, 1 TAB PO DAILY for 30 Days, #30 TAB 3 Refills Prov:OLINDA ALVARES MD 01/01/25 Cefdinir (Cefdinir) 300 Mg Cap, 1 CAP PO BID, #14 CAP Prov:OLINDA ALVARES MD 01/01/25 Hydrocodone-Acetaminophen (Hydrocodone Bitartrate/AC 5-325 mg) 1 Tab Tab, 1 TAB PO Q6HP PRN, #30 TAB Prov:CRAIG HENDRICKS MD 12/24/24 Reported Medications [Metformin [id number] Mg] (Metformin Hcl) 1000 MG TAB No Conflict Check, MG 07/11/12 [Onglyza 5 Mg Tablet] No Conflict Check 07/11/12 [[id number] Mg] (Glipizide) 10 MG TAB No Conflict Check, MG 07/11/12 [onglyza] 5 MG No Conflict Check, 5 MG DAILY 08/21/09 Metformin Hydrochloride (Metformin Hcl) 1,000 Mg Tab, 1000 MG BID 08/21/09 Glyburide (Diabeta) 5 Mg Tab, 5 MG 08/21/09 Information Source: Patient Mode of Arrival: Ambulatory Severity: Moderate Timing: Weeks Duration: Since onset Prehospital treatment: None Past Medical History PAST MEDICAL HISTORY: DM, HTN Surgical History: RN MDS History: No Pertinent RN MDS History Family History Family History: Unknown Social History Smoker: Non-Smoker Alcohol: Denies ETOH Use Drugs: Denies Drug Use Lives In: Home Constitutional: reports: others (generalized body pain); denies: chills, diaphoresis, fatigue, fever, malaise, sweats, weakness EENTM: denies: blurred vision, double vision, ear bleeding, ear discharge, ear drainage, ear pain, ear ringing, eye pain, eye redness, hearing loss, mouth pain, mouth swelling, nasal discharge, nose bleeding, nose congestion, nose pain, photophobia, tearing, throat pain, throat swelling, voice changes, others Respiratory: denies: cough, hemoptysis, orthopnea, SOB at rest, shortness of breath, SOB with excertion, stridor, wheezing, others Cardiovascular: reports: chest pain; denies: dizzy spells, diaphoresis, Dyspnea on exertion, edema, irregular heart beat, left arm pain, lightheadedness, palpitations, PND, syncope, others Gastrointestinal: denies: abdomen distended, abdominal pain, blood streaked bowels, constipated, diarrhea, dysphagia, difficulty swallowing, hematemesis, melena, nausea, poor appetite, poor fluid intake, rectal bleeding, rectal pain, vomiting, others Genitourinary: denies: abnormal vagina bleeding, burning, dyspareunia, dysuria, flank pain, frequency, hematuria, incontinence, pain, , vagina discharge, urgency, others Neurological: denies: dizziness, fainting, headache, left sided numbness, left sided weakness, numbness, paresthesia, pre-existing deficit, right sided numbness, right sided weakness, seizure, speech problems, tingling, tremors, weakness, others Musculoskeletal: reports: back pain; denies: gout, joint pain, joint swelling, muscle pain, muscle stiffness, neck pain, others Integumetry: denies: bruises, change in color, change in hair/nails, dryness, laceration, lesions, lumps, rash, wounds, others Allergic/Immunocompromised: denies: Difficulty Healing, Frequent Infections, Hives, Itching, others Hematologic/Lymphatic: denies: anemia, blood clots, easy bleeding, easy bruising, swollen glands, others Endocrine: denies: excessive hunger, excessive sweating, excessive thirst, excessive urination, flushing, intolerance to cold, intolerance to heat, un explained weight gain, unexplained weight loss, others Psychiatric: denies: anxiety, bipolar disorder, depression, hopeless, panic disorder, schizophrenia, sleepless, suicidal, others All Other Systems: Reviewed and Negative Physical Exam General Appearance: Normal HEENT: Normal ENT Inspection, Pharynx Normal, TMs Normal Neck: Full Range of Motion, Non-Tender, Normal, Normal Inspection Respiratory: Chest Non-Tender, Lungs Clear, No Accessory Muscle Use, No Respiratory Distress, Normal Breath Sounds Cardiovascular: No Edema, No JVD, No Murmur, No Gallop, Normal Peripheral Pulses, Regular Rate/Rhythm Breast Exam: Deferred Gastrointestinal: No Organomegaly, Non Tender, No Pulsatile Mass, Normal Bowel Sounds, Soft Genitalia: Deferred Pelvic: Deferred Rectal: Deferred Extremities: No calf tenderness, Normal capillary refill, Normal inspection, Normal range of motion, Non-tender, No pedal edema Musculoskeletal : Apperance: Normal Neurologic: Alert, manager of compensation II-XII nml as Tested, No Motor Deficits, Normal Affect, Normal Mood, No Sensory Deficits Cerebellar Function: Normal Reflexes: Normal Skin: Dry, Normal Color, Warm Lymphatic: No Adenopathy Was a procedure done? Was a procedure done?: No Differential Dx Considerations may include: DDX: Urinary tract infection, pyelonephritis, ureteral colic, ureteral calculus, ureter obstruction, renal failure and others X-Ray, Labs, Meds, VS Vital Signs Date Time Temp Pulse Resp B/P (MAP) Pulse Ox O2 Delivery O2 Flow Rate FiO2 01/02/25 00:37 94 20 98 Room Air 01/02/25 00:37 98.0 94 20 142/67 (92) 98 98.0 01/01/25 23:45 65 20 136/65 (88) 99 01/01/25 20:04 98.7 124 18 145/75 97 98.7 Lab Test 01/01/25 21:39 01/01/25 20:45 Range/Units Troponin I High Sensitivity < 3 L < 3 L </=34 ng/L White Blood Count 13.8 H 4.4-10.8 10^3/uL Red Blood Count 2.81 L 4.0-5.20 10^6/uL Hemoglobin 7.8 L 12.2-16.2 g/dL Hematocrit 23.3 L 36.0-46.0 % Mean Corpuscular Volume 83.1 80.0-100.0 fL Mean Corpuscular Hemoglobin 27.9 L 28.0-32.0 pg Mean Corpuscular Hemoglobin Concent 33.6 32.0-36.0 g/dL Red Cell Distribution Width 15.4 H 11.8-14.3 % Platelet Count 653 H 140-450 10^3/uL Mean Platelet Volume 6.3 L 6.9-10.8 fL Neutrophils (%) (Auto) 58.7 37.0-80.0 % Lymphocytes (%) (Auto) 33.2 10.0-50.0 % Monocytes (%) (Auto) 6.4 0.0-12.0 % Eosinophils (%) (Auto) 0.6 0.0-7.0 % Basophils (%) (Auto) 1.1 0.0-2.0 % Neutrophils # (Auto) 8.1 1.6-8.6 10 ^3/uL Lymphocytes # (Auto) 4.6 0.4-5.4 10 ^3/uL Monocytes # (Auto) 0.9 0-1.3 10 ^3/uL Eosinophils # (Auto) 0.1 0-0.8 10 ^3/uL Basophils # (Auto) 0.1 0-0.2 10 ^3/uL Nucleated Red Blood Cells 0.0 % Sodium Level 134 L 136-145 mmol/L Potassium Level 4.6 3.5-5.1 mmol/L Chloride Level 100 98-107 mmol/L Carbon Dioxide Level 24 20-31 mmol/L Anion Gap 10 5-15 Blood Urea Nitrogen 17 9-23 mg/dL Creatinine 0.73 0.550-1.02 mg/dL Glomerular Filtration Rate Calc 95 >90 mL/min BUN/Creatinine Ratio 23.3 H 10.0-20.0 Serum Glucose 204 H 74-106 mg/dL Lactic Acid Level 1.3 0.4-2.0 mmol/L Calcium Level 8.9 8.7-10.4 mg/dL Magnesium Level 1.9 1.6-2.6 mg/dL Total Bilirubin 0.2 0.2-1.0 mg/dL Aspartate Amino Transferase (AST) 21 13-40 U/L Alanine Aminotransferase (ALT) 23 7-40 U/L Alkaline Phosphatase 151 H 46-116 U/L Total Protein 8.7 H 5.7-8.2 g/dL Albumin 3.7 3.2-4.8 g/dL Current Medications Medications (Trade) Dose Ordered Sig/Simon Route Start Time Stop Time Status Last Admin Acetaminophen/ Hydrocodone Bitart ([place] 10/325MG Tab) 1 tab ONCE ONCE PO 01/02/25 00:30 01/02/25 00:31 DC 01/02/25 00:35 Time of 1ST Reevaluation: 21:00 Reevaluation 1ST: Unchanged Patient Education/Counseling: Diagnosis, Treatment, Need For Follow Up Family Education/Counseling: No Family Present SEPSIS Sepsis Screen Date sepsis recognized/suspect: Jan 01, 2025 Time Sepsis recognized/suspect: 2009 Recent Procedure: No On Antibiotic Therapy: No Respiratory Rate >20: No Heart Rate >90: Yes Temp<36 C (96.8 F) or >38.3 C: No SBP <90 or MAP <65 mmHG: No New Acute Mental Status Change: No Is the patient on CPAP, BIPAP,: No Physician Orders Electrocardigram (01/01/25 20:25) Blood Culture (01/01/25 20:32) Ct Ab Pel Wo Con-No Oral Or Iv (01/01/25 22:53) Vital Signs Date Time Temp Pulse Resp B/P (MAP) Pulse Ox O2 Delivery O2 Flow Rate FiO2 01/02/25 00:37 94 20 98 Room Air 01/02/25 00:37 98.0 94 20 142/67 (92) 98 98.0 01/01/25 23:45 65 20 136/65 (88) 99 01/01/25 20:04 98.7 124 18 145/75 97 98.7 Laboratory Tests Test 01/01/25 20:45 Lactic Acid Level 1.3 mmol/L (0.4-2.0) White Blood Count 13.8 10^3/uL (4.4-10.8) H Medications Medications Dose Ordered Sig/Simon Route Start Time Stop Time Status Last Admin Dose Admin Acetaminophen/ Hydrocodone Bitart 1 tab ONCE ONCE PO 01/02/25 00:30 01/02/25 00:31 DC 01/02/25 00:35 Departure 1 Departure Time of Disposition: 23:00 Impression: Primary Impression: Urinary tract infection Disposition: HOME / SELF CARE / HOMELESS Condition: Stable e-Prescriptions Gabapentin (Once-Daily) (Gabapentin) 300 Mg Tab 300 MG PO Q6HP PRN, #60 TAB Prov: OLINDA ALVARES MD 01/01/25 Ferrous Sulfate (FERROUS SULFATE) 325 Mg Tb 1 TAB PO DAILY for 30 Days, #30 TAB 3 Refills Prov: OLINDA ALVARES MD 01/01/25 Cefdinir (Cefdinir) 300 Mg Cap 1 CAP PO BID, #14 CAP Prov: OLINDA ALVARES MD 01/01/25 Discharged With: Self Critical Care Note Critical Care Time?: No Stability Stability form required: No Heart Score Heart Score: Heart Score Response (Comments) Value History N/A 0 EKG N/A 0 Age N/A 0 Risk Factors N/A 0 Troponin N/A 0 Total 0 I personally scribed for OLINDA ALVARES MD ([email or web address]) on 01/01/25 at 20:34. Electronically submitted by Eli King ([email or web address]). OLINDA ALVARES MD Jan 01, 2025 20:34
[2025-01-01 21:05] LABS: Nucleated Red Blood Cells % 0.0 %
[2025-01-01 21:07] LABS: Hematocrit 23.3 % (36.0-46.0); Hemoglobin 7.8 g/dL (12.2-16.2); Mean Corpuscular Hemoglobin 27.9 pg (28.0-32.0); Mean Corpuscular Volume 83.1 fL (80.0-100.0)
[2025-01-01 21:14] LABS: Alanine Aminotransferase 23 U/L (7-40); Albumin 3.7 g/dL (3.2-4.8); Anion Gap 10 (5-15); BUN/Creatinine Ratio 23.3 (10.0-20.0); Blood Urea Nitrogen 17 mg/dL (9-23); Calcium 8.9 mg/dL (8.7-10.4); Carbon Dioxide 24 mmol/L (20-31); Chloride 100 mmol/L (98-107); Magnesium 1.9 mg/dL (1.6-2.6); Potassium 4.6 mmol/L (3.5-5.1)
[2025-01-01 21:30] LABS: Alkaline Phosphatase 151 U/L (46-116); Bilirubin, Total 0.2 mg/dL (0.2-1.0); Glucose 204 mg/dL (74-106); Sodium 134 mmol/L (136-145); Total Protein 8.7 g/dL (5.7-8.2)
--- NOTE | 2025-01-01 23:38 | DVH ---
Exam: CT CT AB PEL WO CON-NO ORAL OR IV History: flank pain Comparison Study: CT CT AB PEL WO CON-NO ORAL OR IV on DOS: 12/15/24 Technique: Multidetector spiral CT of the abdomen was performed from lung bases to pubic symphysis. Imaging was performed without IV contrast. Axial, coronal and sagittal multiplanar reformats were obtained from the axial data set by the technologist. Radiation Dose : 1. Abdomen/Pelvis: CTDIvol 10.84 mGy, DLP 665.09 mGy*cm. Findings: Evaluation of solid organs is limited due to lack of intravenous contrast use. Lung Bases: No acute or significant lung base finding. Normal heart size. No pleural or pericardial effusion. Liver: The liver is normal in size. No focal lesions. Gallbladder and Biliary Tree: Unremarkable Spleen: Unremarkable Pancreas: The pancreas is grossly normal in appearance. Adrenal Glands: Unremarkable Kidneys: Kidneys are grossly normal without calculi or hydronephrosis. Bladder: Bhandari catheter in-situ. Bladder decompressed and poorly assessed. Bowel: The stomach is grossly normal in appearance. Small bowel and colon are normal in caliber and distribution. Normal appendix is visualized in the right lower quadrant without findings of appendicitis. Fairly large volume of stool throughout the colon. Ascites: Absent Lymphadenopathy: No mesenteric, retroperitoneal or periportal lymphadenopathy. Abdominal Wall and Mesentery: Unremarkable. Vasculature: The visualized abdominal aorta is normal in size and caliber. Evaluation of abdominal and pelvic vessels is limited due to lack of intravenous contrast. Pelvic Organs: Unremarkable Musculoskeletal: No aggressive focal bony lesions, acute fractures or dislocation. IMPRESSION: Fairly large volume of stool throughout the colon. Otherwise no clear cause for symptoms. Radiation optimization: All CT scans at this facility use at least one of these dose optimization techniques: automated exposure control mA and/or kV adjustment per patient size (includes targeted exams where dose is matched to clinical indication) or iterative reconstruction.
[2025-01-01] MEDS ORDERED: GABA300T4 PO (23:53)
[2025-01-01] MEDS ORDERED: CEFD300C2 PO (23:53)
[2025-01-01] MEDS ORDERED: FER325T PO (23:53)
[2025-01-02] MEDS: HYDROcodone-ACET 10/325MG TAB PO ONE (00:35)
[2025-01-02 00:37] VITALS: BP 142/67; PULSE 94; RESP 20; TEMP 98; O2SAT 98
== END 2025-01-02 00:47 | disposition home or self-care (01) ==
LOC: ER 20:02
DX: N39.0 Urinary tract infection, site not specified (principal); M54.9 Dorsalgia, unspecified; R07.9 Chest pain, unspecified; E11.9 Type 2 diabetes mellitus without complications; I10 Essential (primary) hypertension; Z79.84 Long term (current) use of oral hypoglycemic drugs
CPT/HCPCS: 36415; 74176; 80053; 83605; 83735; 84484; 85025; 87040